=== PATIENT | female | born 1960 | race Caucasian/White ===

== ENCOUNTER → 2018-05-02 11:53 | Outpatient (CLI) | payer OTHER, SELFPAY ==
--- NOTE | 2018-05-02 12:07 | RAD_ITS ---
STUDY: X-RAY - LUMBAR SPINE REASON FOR EXAM: Female, 58 years old. TECHNIQUE: 10 view(s) of the lumbar spine were obtained. COMPARISON: None FINDINGS: There are mild degenerative changes involving the lower thoracic spine. The lumbosacral however shows normal alignment and curvature with no acute fractures or dislocations. The disc spaces look fairly well-contained except for the presence of marginal osteophytes at the L2-3 level. The facet joints are normal. Posterior elements are within normal limits. . RAD/L/S Spine Min 4 Views IMPRESSION: Degenerative changes involving the lower thoracic spine. Small marginal osteophytes at the L2-3 level. No acute fractures. Electronically Signed: Aman Naidu MD at 4:52 EST Tel , Service support ,
== END ==
PROVIDERS: Family Provider Family Medicine; PCP Family Medicine; Referring Provider Family Medicine; Visit Provider Family Medicine
DX: M54.5 Low back pain (principal); G89.29 Other chronic pain
CPT/HCPCS: 72110

== ENCOUNTER → 2019-06-19 10:02 | Outpatient (CLI) | payer OTHER, SELFPAY ==
[2015-05-12 11:20] VITALS: BMI 34.6
--- NOTE | 2019-06-19 10:06 | RAD_ITS ---
STUDY: X-RAY - LUMBAR SPINE REASON FOR EXAM: Female, 59 years old. Chronic low back pain. TECHNIQUE: 5 view(s) of the lumbar spine were obtained. COMPARISON: None FINDINGS: Normal lumbar lordosis. There is no substantial scoliosis. There is a normal alignment of the vertebrae. Mild spondylosis L2-L3 otherwise normal endplates and vertebral bodies. No significantly narrowed disc spaces. No compression fractures. The soft tissue structures are unremarkable. RAD/L/S Spine Min 4 Views IMPRESSION: Minimal degenerative changes. No acute abnormalities. Electronically Signed: Andrea Mejia MD at 0:01 EST , Service support ,
== END ==
PROVIDERS: Family Provider Family Medicine; PCP Family Medicine; Referring Provider Family Medicine; Visit Provider Family Medicine
DX: M54.5 Low back pain (principal)
CPT/HCPCS: 72110

== ENCOUNTER 2019-07-13 14:00 | Outpatient (RCR) | payer OTHER, SELFPAY ==
--- NOTE | 2019-07-01 09:50 | HP.PTEVAL_ITS ---
Patient's Visit Information RODRICK RIVERA is a 59 year old F referred to Physical Therapy by Michel Myers MD with a diagnosis of CHRONIC LOW BACK PAIN. Date of Evaluation: 06/30/19 Physical Therapist: Gabby Contreras PT, Cert MDT - Visit Plan Frequency: 2-3x /Week Duration: 4-6 Weeks Plan: AQUATIC THERAPY FOR PAIN RELIEF, POSTURE CORRECTION/STRENGTHENING, INSTRUCTION IN APPROPRIATE BODY MECHANICS AND ACTIVITY MODIFICATIONS. DLS STARTING WITH A NEUTRAL SPINE PROGRESSING ROM TOLERATED. BALTAZAR LE ROM, STRETCHING AND STRENGTHENING. HEP INSTRUCTION. 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 CURRENTLY OFF WORK SINCE JUN 25 2019 AND TENTATIVELY OFF WORK UNTIL JUL 17 2019. Disability: NO. Present symptoms: LOW BACK PAIN. RIGHT BUTTOCK PAIN, RIGHT THIGH PAIN, RIGHT LATERAL LOWER LEG NUMBNESS INTO FOOT AND TOES. PATIENT REPORTS HER RIGHT ANKLE FEELS LIKE IT IS SPRAINED. THE RIGHT LE NUMBNESS IS CONSTANT. Present since: CHRONIC LOW BACK PAIN. BRONCHITIS SEVERAL MONTHS AGO WITH FREQUENT COUGHING THROWING BACK OUT AND HASN'T BEEN ABLE TO GET BACK TO BASELINE. LEG CRAMPING WITH WALKING. RECENTLY HAS STARTED TO TRIP. Pain Scale: WORST 8/10, LEAST 0/10. Currently: 5/10. Commenced as a result of: THIS FLARE UP - COUGHING. Symptoms at onset: LOW BACK. Worse: SITTING, LYING DOWN, WALKING, RISING FROM SITTING, COUGHING, SNEEZING, CLEARING THROAT, BENDING BACK. GETTING UP IN THE MORNINGS. Better: SOMETIMES WALKING SHORT DISTANCES, PAIN MEDS. NUMBNESS GETS SLIGHTLY BETTER IN LYING BUT ONCE UP IT IS WORSE. Disturbed sleep: YES. Previous history/Previous treatment: MULTIPLE BACK INJURIES OVER THE YEARS. SOME OF THEM WORK INJURIES. 2011 MICRO DISCECTOMY L2-L5 FOR HERNIATION. H/O OF RAI BEFORE SURGERY. PHYSICAL THERPAY PRIOR TO SX IN 2011 BUT NONE SINCE. H/O CHIRO BEFORE SURGERY TOO. Coughing/sneezing/straining: POSITIVE. Gait: DISTANCE LIMITED. PROLONGED WALKING CAUSES RIGHT LE CRAMPING. RIGHT LE DOESN'T WANT TO WORK RIGHT. OCCASSIONALLY TRIPS. NO ASSISTIVE DEVICES. Difficulty initiating urinatin: NO. Accidents: NO. Unexplained weight loss: NO. Imaging: LUMBAR X- RAYS JUN 19 2019 - MILD DEGENERATIVE CHANGES. 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 OTHER: ORTHO BEATRIZ'T PENDING WITH DR. YUKO WALL JUL 14 2019. TRIED STEROID X 5 DAYS WITHOUT MUCH BENEFIT REPORTED. - Objective Sitting/Standing Posture: POOR. Lordosis: REDUCED. Lateral shift: NO. Relevant shift: N/A. Active Correction of posture: BETTER. Other Observations: DIFFICULTY RISING FROM SITTING AND INITIATING GAIT. LIMPING ON RIGHT LE. DECREASED CADANCE AND ANTALGIC. Motor deficit: LLE 5/5 WITH MMT EXCEPT HIP 4/5. RIGHT LE: HIP 4-/5, KNEE EXT 4/5, KNEE FLEX 4/5, ANKLE 4/5. Sensory deficit: DECREASED RIGHT LAT LEG, FOOT AND TOES. ROM deficit: TIGHT RIGHT HIP FLEXORS, HS'S AND GASTROC SOLEUS COMPLEX. Reflexes: 1/2 RIGHT LE, 2/2 LLE. Dural Signs: POSITIVE RIGHT LE. Lumbar mvmt loss: flex - VITA. ext - VITA. R SG - MOD. L SG - VITA. Core strength: POOR. Palpation: NO ACUTE LUMBOSACRAL TENDERNESS. INCREASED MUSCLE TONE BALTAZAR PARASPINALS. TREATMENT: NEURO RE-ED - INSTRUCTION IN PROPER POSTURE CONTROL AND APPROPRIATE ACTIVITY MODIFICATIONS. - Goals Goal 1:: DECREASE C/O LOW BACK AND RIGHT LE SX'S Goal Time Frame: 4-6 Weeks Goal 2:: IMPROVE PERSONAL CARE, WALKING, SITTING, STANDING, SLEEP, SOCIAL LIFE, TRAVEL, WORK AND HOMEMAKING FUNCTION Goal Time Frame: 4-6 Weeks Goal 3:: INSTRUCT IN PROPHYLAXIS Goal Time Frame: 4-6 Weeks - Rehabilitation Potential Rehabilitation Potential: Fair - Anticipated Interventions Patient/Client Instruction: Educate patient on: Condition, Plan of Care, Risk Factors, Benefits of Fitness Program For the Purpose of:: To improve self management Therapeutic Exercise to Include: Strength training, Endurance training, Balance training, Body mechanics, Postural training, Flexibilty training, Neuromotor development, In an aquatic setting, Active ROM, Dynamic Lumbar Stabilization For the Purpose of:: To decrease pain, To increase ROM, To improve muscle performance and motor function, To increase tolerance to activity/condition/position, To improve ability of physical actions for home/community/work/leisure, To improve gait and locomotor functions Thank you for the opportunity to evaluate your patient. For Medicare and Medicare HMO plans, please review the plan of care and approve it. It will need to be FAXED BACK to us at [phone] for Medicare purposes. For Medicare only, by signing this I certify the plan of care. Please let me know if there are questions or concerns regarding this plan of care. Physician Signature: Date:
--- NOTE | 2019-07-17 12:09 | HP.PT.NRP ---
HP - Discharge Summary (1) - Patient Information RODRICK RIVERA was seen in my office for initial evaluation on 06/30/19. The following Plan of Care was established for this patient: Initial Frequency: 2-3x /Week Initial Duration: 4-6 Weeks - Anticipated Interventions Patient/Client Instruction: Educate patient on: Condition, Plan of Care, Risk Factors, Benefits of Fitness Program For the Purpose of:: To improve self management Therapeutic Exercise to Include: Strength training, Endurance training, Balance training, Body mechanics, Postural training, Flexibilty training, Neuromotor development, In an aquatic setting, Active ROM, Dynamic Lumbar Stabilization For the Purpose of:: To decrease pain, To increase ROM, To improve muscle performance and motor function, To increase tolerance to activity/condition/position, To improve ability of physical actions for home/community/work/leisure, To improve gait and locomotor functions This patient was last seen in our office . Pertinent comments regarding their Physical therapy will appear below: This patient has not returned to Physical Therapy and is appropriate to return to MD for further follow-up as needed. I received a message stating patient cancelled all remaining micaela'ts at the direction of her physician. At this point I will be discontinuing this patient from physical therapy. I would be happy to see this patient again in the future if found appropriate by the physician. Thank you! Gabby Contreras, PT, Cert MDT
== END 2019-07-13 19:00 | disposition home or self-care (01) ==
LOC: PT 14:00
PROVIDERS: Family Provider Family Medicine; PCP Family Medicine; Referring Provider Family Medicine; Visit Provider Family Medicine
DX: M54.5 Low back pain (principal)
CPT/HCPCS: 97112; 97113; 97162

== ENCOUNTER → 2020-01-15 08:32 | Outpatient (CLI) | payer OTHER, SELFPAY ==
[2015-05-12 11:20] VITALS: BMI 34.6
[2020-01-15 10:08] LABS: Anion Gap 4 (5-15); BUN 17 mg/dL (7-18); BUN/Creat Ratio 18.3 RATIO (10-20); Calcium,Total 9.3 mg/dL (8.5-10.1); Chloride 105 mmol/L (98-107); Cholesterol 166 mg/dL (200); Creatinine, Serum 0.93 mg/dL (0.55-1.02); EST Glomerular Filtration Rate 65 mL/min (>60); Est Glom Filt Rate - Afr Amer 79 mL/min (>60); Glucose 100 mg/dL (74-106); High Density Lipoprotein 45 mg/dL; Potassium 3.7 mmol/L (3.5-5.1); Sodium Level 139 mmol/L (136-145); Triglycerides 265 mg/dL; Very Low Density Lipoprotein 53 mg/dL (5-40)
[2020-01-15 10:14] LABS: Vitamin D,25 Hydroxy 35.8 ng/mL
== END ==
PROVIDERS: PCP Family Medicine; Referring Provider Family Medicine; Visit Provider Family Medicine
DX: E78.5 Hyperlipidemia, unspecified (principal); E55.9 Vitamin D deficiency, unspecified
CPT/HCPCS: 36415; 80048; 80061; 82306

== ENCOUNTER → 2020-10-07 09:56 | Outpatient (CLI) | payer OTHER, SELFPAY ==
--- NOTE | 2020-10-07 10:04 | BI_ITS ---
MAMMOGRAPHY - BILATERAL SCREENING REASON FOR EXAM: Female, 60 years old. Routine annual screening examination. PERTINENT HISTORY: Non-contributory. Remote right excisional breast biopsy. History of prior left lumpectomy for abscess treatment. TECHNIQUE: Digital bilateral breast arnel (3D mammographic acquisition) in the CC and MLO projections. 2-D mediolateral oblique (MLO) and craniocaudad (CC) views of both breasts were obtained. CAD: Full Field Digital Mammography with Computer Added Detection was performed. COMPARISON: Comparison is made with prior outside examination dated 09/24/2014. FINDINGS: Breast Composition: The breasts are heterogeneously dense, which may obscure small masses. There are no dominant masses or suspicious calcifications. Stable benign-appearing bilateral axillary lymph nodes. No other significant abnormalities are identified. There has been no significant change since the prior study. BI/SCRN MAMM (CAD)W/ARNEL BILAT IMPRESSION: Stable bilateral screening mammogram. Yearly follow-up mammogram recommended. (A) ASSESSMENT CATEGORY: BIRADS Category 2: Benign. A letter regarding these results will be sent to the patient by the facility within 30 days. Approximately 10% of breast cancers are not detected by mammography. A normal mammogram should not delay biopsy of a clinically suspicious abnormality. [id number] Electronically Signed: Octavio Worley MD at 13:27 EDT , Service support ,
== END ==
PROVIDERS: PCP Family Medicine; Referring Provider Family Medicine; Visit Provider Family Medicine
DX: Z12.31 Encounter for screening mammogram for malignant neoplasm of breast (principal)
CPT/HCPCS: 77063; 77067

== ENCOUNTER → 2021-03-10 14:13 | Outpatient (CLI) | payer OTHER, SELFPAY ==
[2021-03-10 17:41] LABS: CRP 3.52 mg/L (0.0-3.0)
[2021-03-13 17:07] LABS: Endomysial Antibody IgA Negative (Negative)
[2021-03-13 18:09] LABS: Immunoglobulin A 25 mg/dL (87-352); t-Transglutaminase IgA <2 U/mL (0-3)
== END ==
PROVIDERS: PCP Family Medicine; Referring Provider Internal Medicine Gastroenterology; Visit Provider Internal Medicine Gastroenterology
DX: R19.7 Diarrhea, unspecified (principal)
CPT/HCPCS: 36415; 82784; 83516; 86140; 86255

== ENCOUNTER → 2021-03-23 13:53 | Outpatient (CLI) | payer OTHER, SELFPAY | PROVIDERS: PCP Family Medicine; Referring Provider Internal Medicine Gastroenterology; Visit Provider Internal Medicine Gastroenterology | DX: E55.9 Vitamin D deficiency, unspecified (principal); Z83.79 Family history of other diseases of the digestive system | CPT/HCPCS: 36415; 83516 ==

== ENCOUNTER → 2021-03-27 08:52 | Outpatient (CLI) | payer OTHER, SELFPAY | PROVIDERS: PCP Family Medicine; Referring Provider Registered Nurse; Visit Provider Registered Nurse | DX: J98.8 Other specified respiratory disorders (principal) | CPT/HCPCS: 87633; 87635; U0005; U0003 ==

== ENCOUNTER 2021-07-04 16:51 | Outpatient (CLI) | payer OTHER, SELFPAY | END 2021-07-04 23:59 | disposition short-term general hospital (02) | PROVIDERS: PCP Family Medicine; Referring Provider Family Medicine; Visit Provider Family Medicine | DX: Z20.822 Contact with and (suspected) exposure to COVID-19 (principal) | CPT/HCPCS: 87635; U0003; U0005 ==

== ENCOUNTER 2021-09-06 16:36 | Outpatient (CLI) | payer OTHER, SELFPAY ==
[2021-09-06 17:51] LABS: Absolute Lymphocyte Count 1.75 X10^3/uL (0.83-4.51); Basophil# 0.04 X10^3/uL; Basophil% 0.9 % (0-1); Eosinophils% 2.3 % (0-5); Hematocrit 42.9 % (37-47); Lymphocyte # 1.75 X10^3/ul (0.83-4.51); Lymphocyte % 40.4 % (19-41); Mean Corp Hgb Conc 32.6 g/dL (32-36); Mean Corpuscular Hgb 29.6 pg (27.0-32.0); Mean Corpuscular Volume 90.7 fL (81-99); Mean Platelet Vol. 9.2 fl (6.2-12.0); Monocyte# 0.42 X10^3/uL; Monocyte% 9.7 % (0-10); NRBC Flagged by Analyzer 0 % (0-5); Neutrophil # 2.01 X10^3/uL (2.7-7.7); Neutrophil % 46.5 % (47-70); Platelet Count 315 K/mm3 (150-450); RBC Distribution Width CV 12.9 % (11.6-14.6); RBC Distribution Width SD 43.4 fl (35.1-43.9); Red Blood Count 4.73 M/mm3 (4.2-5.4); White Blood Count 4.3 K/mm3 (4.4-11.0)
[2021-09-06 18:48] LABS: Anion Gap 7 (5-15); BUN 22 mg/dL (7-18); BUN/Creat Ratio 30.1 RATIO (10-20); Calcium,Total 9.7 mg/dL (8.5-10.1); Chloride 103 mmol/L (98-107); Creatinine, Serum 0.73 mg/dL (0.55-1.02); EST Glomerular Filtration Rate 86 mL/min (>60); Est Glom Filt Rate - Afr Amer 104 mL/min (>60); Glucose 89 mg/dL (74-106); Potassium 3.6 mmol/L (3.5-5.1); Sodium Level 140 mmol/L (136-145)
== END 2021-09-06 23:59 | disposition home or self-care (01) ==
LOC: MFPLAB 16:39
PROVIDERS: PCP Family Medicine; Referring Provider Family Medicine; Visit Provider Family Medicine
DX: R25.1 Tremor, unspecified (principal)
CPT/HCPCS: 36415; 80048; 85025

== ENCOUNTER → 2021-12-27 | Outpatient (CLI) | payer OTHER, SELFPAY ==
[2021-12-27 12:53] LABS: Vitamin D,25 Hydroxy 30.8 ng/mL
[2021-12-27 12:57] LABS: Anion Gap 7 (5-15); BUN 20 mg/dL (7-18); BUN/Creat Ratio 24.3 RATIO (10-20); Calcium,Total 9.6 mg/dL (8.5-10.1); Chloride 103 mmol/L (98-107); Cholesterol 215 mg/dL (200); Creatinine, Serum 0.82 mg/dL (0.55-1.02); EST Glomerular Filtration Rate 75 mL/min (>60); Est Glom Filt Rate - Afr Amer 91 mL/min (>60); Glucose 108 mg/dL (74-106); High Density Lipoprotein 43 mg/dL; Potassium 3.5 mmol/L (3.5-5.1); Sodium Level 138 mmol/L (136-145); Triglycerides 286 mg/dL; Very Low Density Lipoprotein 57 mg/dL (5-40)
== END | disposition home or self-care (01) ==
LOC: MFPLAB 10:22
PROVIDERS: PCP Family Medicine; Referring Provider Family Medicine; Visit Provider Family Medicine
DX: Z00.01 Encounter for general adult medical examination with abnormal findings (principal)
CPT/HCPCS: 36415; 80048; 80061; 82306

== ENCOUNTER → 2022-03-15 | Outpatient (CLI) | payer OTHER, SELFPAY ==
--- NOTE | 2022-03-15 15:04 | RAD_ITS ---
STUDY: X-RAY CHEST REASON FOR EXAM: Female, 61 years old. COUGH TECHNIQUE: PA and lateral views of the chest. COMPARISON: 11/13/2013 FINDINGS: The lungs are clear and expanded. There is no demonstrated pleural abnormality. Normal size heart. Normal mediastinum and emilia. Normal visualized pulmonary arteries. There is atherosclerotic tortuosity of the aortic arch and descending thoracic aorta. There is no demonstrated abnormality of the visualized soft tissue structures of the upper abdomen. RAD/Chest PA and Lateral IMPRESSION: No acute abnormal cardiopulmonary finding. Electronically Signed: Michel Rizo MD at 3:49 EDT ,
== END | disposition home or self-care (01) ==
LOC: MTRAD 15:03
PROVIDERS: PCP Family Medicine; Referring Provider Family Medicine; Visit Provider Family Medicine
DX: R05.9 Cough, unspecified (principal)
CPT/HCPCS: 71046

== ENCOUNTER → 2022-07-19 | Outpatient (CLI) | payer OTHER, SELFPAY ==
--- NOTE | 2022-07-19 15:15 | BI_ITS ---
MAMMOGRAPHY - BILATERAL SCREENING REASON FOR EXAM: Female, 62 years old. Routine annual screening examination. PERTINENT HISTORY: Non-contributory. Remote bilateral excisional breast biopsies. TECHNIQUE: Digital bilateral breast arnel (3D mammographic acquisition) in the CC and MLO projections. 2-D mediolateral oblique (MLO) and craniocaudad (CC) views of both breasts were obtained. CAD: Full Field Digital Mammography with Computer Added Detection was performed. COMPARISON: Comparison is made with prior study dated 10/07/2020 and 09/29/2012. FINDINGS: Breast Composition: The breasts are heterogeneously dense, which may obscure small masses. There are no dominant masses or suspicious calcifications. Stable small benign-appearing bilateral axillary lymph nodes. No other significant abnormalities are identified. There has been no significant change since the prior study. BI/SCRN MAMM (CAD)W/ARNEL BILAT IMPRESSION: Stable bilateral screening mammogram. Yearly follow-up mammogram recommended. (A) ASSESSMENT CATEGORY: BIRADS Category 2: Benign. A letter regarding these results will be sent to the patient by the facility within 30 days. Approximately 10% of breast cancers are not detected by mammography. A normal mammogram should not delay biopsy of a clinically suspicious abnormality. [id number] Electronically Signed: Octavio Worley MD at 8:12 EST ,
--- NOTE | 2022-07-19 15:25 | BD_ITS ---
STUDY: DUAL ENERGY X-RAY ABSORPTIOMETRY / DXA REASON FOR EXAM: Female, 62 years old. [id number] TECHNIQUE: Bone Mineral Density (BMD) measurements of lumbar spine and bilateral hips were obtained. COMPARISON: None. FINDINGS: Lumbar Spine (L1-L4): g/cm2 (0.965) / T-score (-0.7) / Z-score (0.8) Findings are suggestive of normal bone density with a low fracture risk. Left Femur Total: g/cm2 (0.904) / T-score (-0.3) / Z-score (0.8) Left Femoral Neck: g/cm2 (0.648) / T-score (-1.8) / Z-score (-0.4) Right Femur Total: g/cm2 (0.942) / T-score (0.0) / Z-score (1.1) Right Femoral Neck: g/cm2 (0.758) / T-score (-0.8) / Z-score (0.6) BD/Dexa Bone Density Study IMPRESSION: The patient is considered osteopenic as outlined below according to World Jeff Organization (WHO) criteria with a moderate fracture risk. Reference Information: The T-score is the number of standard deviations above or below the standard which is normal for young adults at their peak bone mineral density. The World Health Organization (WHO) interprets the T-scores as follows: Above -1 Normal bone density Between -1 and -2.5 Osteopenia Equal to / or below -2.5 Osteoporosis As a practical clinical guideline, osteopenia may be graded as follows: Mild -1 through -1.5 Moderate -1.6 through -2.0 Severe -2.1 through -2.4 The Z-score is the number of standard deviations above or below age-matched controls. A Z-score of less than -1.5 would be considered abnormal. References: 1. NIH Osteoporosis and Related Bone Diseases www osteo.org 2. International Society for Clinical Densitometry www iscd.org 3. National Osteoporosis Foundation www nof.org Electronically Signed: Octavio Worley MD at 12:40 EST ,
== END | disposition home or self-care (01) ==
LOC: OPBD 15:13
PROVIDERS: PCP Family Medicine; Visit Provider Family Medicine
DX: Z78.0 Asymptomatic menopausal state (principal); Z12.31 Encounter for screening mammogram for malignant neoplasm of breast
CPT/HCPCS: 77063; 77067; 77080

== ENCOUNTER → 2023-03-14 | Outpatient (CLI) | payer OTHER, SELFPAY ==
--- NOTE | 2023-03-14 09:19 | US_ITS ---
STUDY: ULTRASOUND BREAST - LEFT REASON FOR EXAM: Female, 62 years old. Left breast pain and tenderness. Redness of the overlying skin. TECHNIQUE: Axial and longitudinal images of the LEFT breast were performed with a high resolution ultrasound transducer. # OF IMAGES: 25 COMPARISON: Comparison is made with prior mammogram done earlier in the day. FINDINGS: LEFT Breast: The upper medial aspect of the breast was examined with ultrasound. No sonographic abnormality is seen. US/Breast Limited Unilateral IMPRESSION: No sonographic abnormality is seen. ASSESSMENT CATEGORY: BIRADS Category 1: Negative. A letter regarding these results will be sent to the patient by the facility within 30 days. Electronically Signed: Octavio Worley MD at 10:56 EDT ,
--- NOTE | 2023-03-14 09:19 | BI_ITS ---
MAMMOGRAPHY - UNILATERAL DIAGNOSTIC: LEFT BREAST REASON FOR EXAM: Female, 62 years old. One-week history of redness of the skin overlying the medial aspect of the left breast. Patient has history of prior abscess in the breast with drainage. Remote right excisional breast biopsy. PERTINENT HISTORY: Non-contributory. TECHNIQUE: Digital unilateral breast alisha (3D mammographic acquisition) in the CC and MLO projections. 2-D mediolateral oblique (MLO) and craniocaudad (CC) views of both breasts were obtained. CAD: Full Field Digital Mammography with Computer Added Detection was performed. COMPARISON: Comparison is made with prior study July 19, 2022 and October 07, 2020. FINDINGS: Breast Composition: The breasts are heterogeneously dense, which may obscure small masses. There are no dominant masses or suspicious calcifications. Stable small benign appearing bilateral axillary lymph nodes. No other significant abnormalities are identified. There has been no significant change since the prior study. BI/DIAG MAMM W/CAD, UNILAT IMPRESSION: Stable unilateral diagnostic mammogram. One year follow-up mammogram recommended. (A) ASSESSMENT CATEGORY: BIRADS Category 2: Benign. A letter regarding these results will be sent to the patient by the facility within 30 days. Approximately 10% of breast cancers are not detected by mammography. A normal mammogram should not delay biopsy of a clinically suspicious abnormality. Electronically Signed: Octavio Worley MD at 10:47 EDT ,
== END | disposition home or self-care (01) ==
PROVIDERS: PCP Family Medicine; Referring Provider Family Medicine; Visit Provider Family Medicine
DX: N63.20 Unspecified lump in the left breast, unspecified quadrant (principal)
CPT/HCPCS: 76642; 77061; 77065; G0279

== ENCOUNTER 2023-04-20 12:01 | Emergency (ER) | payer OTHER, SELFPAY ==
[2023-04-20 12:02] VITALS: BP 135/80; PULSE 54; RESP 16; TEMP 35.7; O2SAT 98; BMI 34.4
--- NOTE | 2023-04-20 12:15 | EKG12_ITS ---
Test Reason : CHEST PAIN Blood Pressure : / mmHG Vent. Rate : 054 BPM Atrial Rate : 054 BPM P-R Int : 144 ms QRS Dur : 094 ms QT Int : 450 ms P-R-T Axes : 045 -22 021 degrees QTc Int : [address] & T wave abnormality, consider anterior ischemia Abnormal ECG Confirmed by JOSE DANIEL ANGUIANO, MATT ([id number]), industrial editor LIDIA BACON ([id number]) on 04/29/2023 6:58:58 AM Referred By: VIOLETA Confirmed By:KWAME SKY MD
--- NOTE | 2023-04-20 12:16 | ED.VIS.CHEST ---
HPI History of Present Illness Chief Complaint: Chest Pain Detail of Chief Complaint: Chest pain Informant: patient Narrative Narrative: Patient presents the emergency department complaint chest pain that started around 9 AM this morning. She describes a sharp retrosternal pain that at times will radiate to her right shoulder blade. Patient states that initially she thought it was GI related because she will have intermittent sharp pains in her chest that she attributes to her GERD. Patient then was standing in line at a store when she started feeling more pressure meds when she became concerned. She presents for evaluation. She denies nausea or vomiting. She has been signing more and feels like she needs to take a deep breath but not necessarily short of breath. She denies exertional dyspnea or change in her activities of daily living. No family history of heart disease. Patient has history of mitral valve prolapse. She does not smoke. She denies recent travel or surgery. She denies history of PE or DVT. PFSH PFSH Home Medications budesonide-formoterol HFA 80 mcg-4.5 mcg/actuation aerosol inhaler (Symbicort) 1 inh inhalation ONCE 03/11/22 [History Last Taken Unknown] hydrochlorothiazide 12.5 mg capsule 12.5 mg PO DAILY 03/11/22 [History Last Taken Unknown] immune glob G 1 gram/5 mL(20 %)-prol-IgA 0-50 mcg/mL subcutaneous soln (Hizentra) subcut 03/11/22 [History Last Taken Unknown] omeprazole 20 mg capsule,delayed release 20 mg PO DAILY 03/11/22 [History Last Taken Unknown] dexamethasone 6 mg tablet 6 mg PO DAILY #5 tabs 05/19/22 [Rx Last Taken Unknown] nirmatrelvir 300 mg (150 mg x2)-ritonavir 100 mg tablet,dose pack (Paxlovid) See Rx Instructions PO .COMPLEX #30 tabs 05/19/22 [Rx Last Taken Unknown] Allergy/AdvReac Type Severity Reaction Status Date / Time erythromycin base Allergy Mild Nausea Verified 04/20/23 12:01 Surgical History H/O: hysterectomy History of appendectomy Hx of cholecystectomy Social History Smoking Status: Never smoker ROS ROS ED Review of Systems ROS Unobtainable: other Constitutional Constitutional ED: Reports lethargy; Denies chills, fever(s), sweats or weight loss Eyes Eyes: Denies blurry vision, change in vision or diplopia ENT ENT ED: Denies rhinorrhea or sore throat Cardiovascular Cardiovascular: Reports chest pain; Denies orthopnea or racing heartbeat Respiratory/Chest Respiratory/Chest: Reports dyspnea; Denies cough, dyspnea on exertion, orthopnea or sputum Gastrointestinal Gastrointestinal: Denies abdominal pain, diarrhea, nausea or vomiting Genitourinary Genitourinary ED: Denies dysuria, hematuria or urinary frequency Musculoskeletal Musculoskeletal: Denies arthralgias, back pain, myalgias or neck pain Integumentary Denies abscess, Abrasions or rash Neurologic Neurologic: Denies headache(s) or weakness Psychiatric Psychiatric: Denies anxiety, depression or suicidal thoughts Endocrine Endocrinology: Denies polydipsia, polyphagia or polyuria Hematologic/Lymphatic Hematologic/Lymphatic: Denies easy bleeding, easy bruising or lymphadenopathy Allergic/Immunologic Allergic/Immunologic ED: Denies mouth swelling, tongue swelling or urticaria EXAM Physical Exam Const Vital Signs: 04/20/23 12:02 04/20/23 12:30 04/20/23 12:30 Temperature 96.2 F L Temperature Source Temporal Pulse Rate 54 L 51 L Respiratory Rate 16 16 Respiratory Effort Short of Breath Blood Pressure 135/80 H 174/108 H Blood Pressure Mean 98 130 Pulse Ox 98 98 Oxygen Delivery Method Room Air Room Air 04/20/23 12:33 04/20/23 14:01 Temperature Temperature Source Pulse Rate 51 L Respiratory Rate 13 Respiratory Effort Blood Pressure 122/68 H Blood Pressure Mean 86 Pulse Ox 96 95 Oxygen Delivery Method Room Air Room Air Positive well nourished and well developed General Appearance ED: well developed and NAD HEENT Reports TM's clear and moist mucous membranes normocephalic and atraumatic; Negative for trauma or tenderness Tympanic Membrane ED: Yes TM's clear Eyes PERRL and EOMs intact bilaterally General Eye ED: Negative for pale conjunctiva or scleral icterus Neck no lymphadenopathy, supple and no JVD General: Negative for tenderness Chest Wall inspection of chest normal and palpation of chest normal Chest: Negative for tenderness Resp normal respiratory effort and clear to auscultation bilaterally Effort and Inspection: Negative for respiratory distress or pain with movement Auscultation: Negative for rhonchi, wheezes or diminished lung sounds Cardio regular rate, regular rhythm, S1 normal heart sound, S2 normal heart sound and no murmurs Peripheral Pulses: pulses 2+ throughout GI normal to inspection, nondistended, normoactive bowel sounds, soft to palpation, non-tender, non-distended and no masses Back/Spine no CVA tenderness and no thoracic nor lumbar tenderness Extremity normal to inspection General Extremety ED: Negative for edema General Extremity: Negative for edema Neuro oriented x3, CN's II-XII intact bilaterally, no sensory deficits noted and gait normal Sensorium / Orientation: awake, alert, oriented to person, oriented to place and oriented to time Motor Exam: strength 5/5 throughout and strength abnormal Psych mental status grossly normal Skin no rashes or lesions noted and no wounds Heart Score History: Slightly/Non-Suspicious ECG: Nonspecific Repolarization Age: >45 - <65 years Risk Factors: 1 or 2 Risk Factors Troponin: </= Normal Limit Score: 3 MDM MDM MDM Narrative Medical decision making narrative: Patient presents with atypical type chest pain started today. In the differential would be PE versus acute coronary syndrome versus musculoskeletal versus GI etiology. IV established on arrival showed a sinus rhythm with a rate of [address] changes. When compared with prior EKG changes are new however last EKG was from 2010. Patient CBC with differential showed a white count 5.8 with hemoglobin of 13.8 and platelet count of 305. Chemistries unremarkable. Initial troponin was normal at 28 and delta troponin was normal at 29. Chest x-ray unremarkable. Patient had a heart score of 3. Medical shared decision making performed. We did offer to admit patient and have a stress test however they do not do them tomorrow will only be available on Saturday. Patient did not want to be admitted and wait until Saturday the and would like to try to go home and follow-up with her physician as an outpatient. She continues to have intermittent sharp stabbing pains in the center of her chest. Clinically I feel she is low risk. She understands risk of heart attack or disability should she have an acute coronary syndrome. Patient would like to go home and she will return if her symptoms persist or worsen. Lab Data Attestation: I reviewed the patient's lab results. Labs: Laboratory Results - last 24 hr 04/20/23 04/20/23 12:20 14:20 WBC 5.8 RBC 4.64 Hgb 13.8 Hct 41.9 MCV 90.3 MCH 29.7 MCHC 32.9 RDW Std Deviation 42.5 RDW Coeff of Guerda 13.0 Plt Count 305 MPV 9.0 Immature Gran % (Auto) 0.500 Neut % (Auto) 47.7 Lymph % (Auto) 37.6 Mineral % (Auto) 9.7 Eos % (Auto) 3.5 Baso % (Auto) 1.0 Absolute Neuts (auto) 2.8 Absolute Lymphs (auto) 2.17 Nucleated RBC % 0 D-Dimer Quant (PE/DVT) 0.50 H Sodium 140 Potassium 3.5 Chloride 104 Carbon Dioxide 28.0 Anion Gap 8 BUN 22 H Creatinine 0.84 Estim Creat Clear Calc 66.66 Est GFR (MDRD) Af Amer 88 Est GFR (MDRD) Non-Af 73 BUN/Creatinine Ratio 26.1 H Glucose 115 H Calcium 9.5 Troponin I High Sens 28 29 Radiography Diagnostic Testing: Clinical Impression(s) from Imaging Studies Chest X-Ray 04/20/23 12:41 IMPRESSION: No radiographic evidence of acute cardiopulmonary disease. Electronically Signed: Aubree Garcia MD at 13:10 EDT , EKG Initial EKG: Attestation: I personally reviewed and interpreted this EKG as follows: Comments: Sinus bradycardia with a rate of beats per minute with nonspecific ST changes noted anterior laterally. Discharge Plan Triage Chief Complaint: Chest Pain ED Provider: Cassandra Fernandez Dx/Rx/DC Orders Clinical Impression: Chest pain Instructions: ED Chest Pain, Uncertain Cause Prescriptions: No Action hydrochlorothiazide 12.5 mg capsule 12.5 mg PO DAILY budesonide-formoterol [Symbicort] 80-4.5 mcg/actuation HFA aerosol inhaler 1 inh inhalation ONCE Hizentra 1 gram/5 mL (20 %) solution subcut omeprazole 20 mg capsule,delayed release(DR/EC) 20 mg PO DAILY Paxlovid 300 mg (150 mg x 2)-100 mg tablets,dose pack See Rx Instructions PO .COMPLEX Qty: 30 0RF Rx Instructions: take TWO 150 mg tablets of nirmatrelvir with ONE 100 mg tablet of ritonavir twice daily for 5 days PO dexamethasone 6 mg tablet 6 mg PO DAILY Qty: 5 0RF Primary Care Provider: Michel Myers Referrals: Michel Myers MD [Primary Care Provider] - As soon as possible Disposition Disposition: Home, Self Care
[2023-04-20] MEDS: 0.9% Normal Saline (1000mL) 1,000 ML 150 ML IV (12:26)
[2023-04-20] MEDS: Aspirin 81 MG TAB.CHEW 162 MG PO (12:27)
[2023-04-20 12:30] VITALS: BP 174/108; PULSE 51; RESP 16; O2SAT 98
[2023-04-20 12:33] VITALS: O2SAT 96
[2023-04-20 12:39] LABS: Absolute Lymphocyte Count 2.17 X10^3/uL (0.83-4.51); Absolute Neutrophil Count 2.8 X10^3/uL (2.0-7.7); Basophil# 0.06 X10^3/uL; Eosinophils% 3.5 % (0-5); Hematocrit 41.9 % (37-47); Hemoglobin 13.8 g/dL (12.0-15.0); Lymphocyte # 2.17 X10^3/ul (0.83-4.51); Lymphocyte % 37.6 % (19-41); Mean Corp Hgb Conc 32.9 g/dL (32-36); Mean Corpuscular Hgb 29.7 pg (27.0-32.0); Mean Corpuscular Volume 90.3 fL (81-99); Monocyte# 0.56 X10^3/uL; Monocyte% 9.7 % (0-10); NRBC Flagged by Analyzer 0 % (0-5); Neutrophil # 2.75 X10^3/uL (2.7-7.7); Neutrophil % 47.7 % (47-70); Platelet Count 305 K/mm3 (150-450); RBC Distribution Width SD 42.5 fl (35.1-43.9); Red Blood Count 4.64 M/mm3 (4.2-5.4); White Blood Count 5.8 K/mm3 (4.4-11.0)
--- NOTE | 2023-04-20 12:41 | RAD_ITS ---
INDICATION: chest pain EXAMINATION/TECHNIQUE: X-RAY - XR Chest 1 View COMPARISON: March 15, 2022 FINDINGS: LINES/DEVICES: None. LUNGS: No consolidation, edema or effusion. No pneumothorax. MEDIASTINUM AND CARDIOVASCULAR STRUCTURES: Cardiac silhouette not enlarged. Central airways and mediastinal contour are unremarkable. BONES AND SOFT TISSUES: Unremarkable. RAD/Chest 1 View (Portable) IMPRESSION: No radiographic evidence of acute cardiopulmonary disease. Electronically Signed: Aubree Garcia MD at 13:10 EDT ,
[2023-04-20 12:57] LABS: Anion Gap 8 (5-15); BUN 22 mg/dL (7-18); BUN/Creat Ratio 26.1 RATIO (10-20); Calcium,Total 9.5 mg/dL (8.5-10.1); Chloride 104 mmol/L (98-107); Creatinine, Serum 0.84 mg/dL (0.55-1.02); EST Glomerular Filtration Rate 73 mL/min (>60); Est Glom Filt Rate - Afr Amer 88 mL/min (>60); Estimated Creatinine Clearance 66.66 ml/min; Glucose 115 mg/dL (74-106); Potassium 3.5 mmol/L (3.5-5.1); Sodium Level 140 mmol/L (136-145); Troponin-I HS (w/2H Reflex) 28 pg/mL (3.0-54.0)
[2023-04-20 14:01] VITALS: BP 122/68; PULSE 51; RESP 13; O2SAT 95
[2023-04-20 14:36] LABS: Reflex Troponin-HS? (from REC) Y
[2023-04-20 15:00] VITALS: BP 125/82; PULSE 53; RESP 12; O2SAT 95
[2023-04-20 15:18] LABS: Troponin-I HS 29 pg/mL (3.0-54.0)
[2023-04-20 15:52] VITALS: BP 125/82; PULSE 53; RESP 12; O2SAT 95
== END 2023-04-20 15:55 | disposition home or self-care (01) ==
PROVIDERS: Emergency Provider Emergency Medicine; PCP Family Medicine; Visit Provider Emergency Medicine
DX: R07.9 Chest pain, unspecified (principal)
CPT/HCPCS: 71045; 80048; 84484; 85025; 85379; 93005; 99284; J7030; A4216

== ENCOUNTER → 2023-05-27 | Outpatient (CLI) | payer OTHER, SELFPAY ==
--- NOTE | 2023-05-27 06:48 | ECHOD_ITS ---
Reason For Study: CP, MVP Procedure This was a 2D Doppler, Color Flow transthoracic echocardiogram. Exam performed in department. Left Ventricle Normal LV size. The estimated ejection fraction is 65 %. No evidence for diastolic dysfunction. No regional wall motion abnormalities noted. Right Ventricle Normal RV size. Normal systolic function. Atria Normal left atrium. Normal right atrium. No doppler evidence for ASD. Mitral Valve There is no mitral valve stenosis. No mitral valve insufficiency. Tricuspid Valve There is no tricuspid stenosis. Trivial tricuspid valve insufficiency. Unable to estimate RV systolic pressure due to insufficient tricuspid regurgitant envelope. Aortic Valve Trisinus/trileaflet aortic valve. There is no aortic stenosis. No aortic valve insufficiency. Pulmonic Valve There is no pulmonic valvular stenosis. Trivial pulmonic valve insufficiency. Great Vessels Normal aortic root. Pericardium/Pleural No pericardial effusion. MMode/2D Measurements & Calculations LVIDd: 5.4 cm IVSd: 1.0 cm Ao root diam: 3.5 cm LVIDs: 3.0 cm LVPWd: 1.0 cm RVDd: 2.4 cm FS: 43.8 % LAV(MOD-bp): 39.9 ml LVAd ap4: 18.8 cm2 SV(MOD-sp4): 29.1 ml LAV(MOD-bp) Indexed: 19.3 ml/m2 LVLd ap4: 6.8 cm LAV(MOD-sp2): 40.8 ml EDV(MOD-sp4): 44.0 ml LAV(MOD-sp4): 39.2 ml EDV(sp4-el): 44.1 ml LVAs ap4: 9.6 cm2 LVLs ap4: 5.4 cm ESV(MOD-sp4): 14.9 ml ESV(sp4-el): 14.3 ml EF(MOD-sp4): 66.1 % EF(sp4-el): 67.5 % SV(sp4-el): 29.7 ml LA A4 area: 14.9 cm2 LA dimension(2D): 3.8 cm RA A4 area: 9.6 cm2 TAPSE: 2.4 cm Time Measurements MV dec time: 0.33 sec Doppler Measurements & Calculations MV E max fam: 55.2 cm/sec Lat Peak E' Fam: 6.4 cm/sec Med Peak E' Fam: 5.1 cm/sec MV A max fam: 67.8 cm/sec E/E' lat: 8.6 E/E' med: 10.9 MV E/A: 0.81 Ao V2 max: 127.9 cm/sec LV V1 max: 90.2 cm/sec MV dec slope: 167.8 cm/sec2 Ao max P.5 mmHg LV V1 max P.3 mmHg Ao V2 mean: 91.1 cm/sec Ao mean P.6 mmHg Ao V2 VTI: 26.0 cm PA V2 max: 90.6 cm/sec PI end-d fam: 105.3 cm/sec TR max fam: 225.2 cm/sec TR max P.3 mmHg ECHO/Echo Complete Interpretation Summary The estimated ejection fraction is 65 %. No evidence for diastolic dysfunction. Ordering Physician: Michel Myers Referring Physician: Michel Myers Performed By: Corrie Shin, KLAUDIA, RVT
--- NOTE | 2023-05-31 15:56 | STRESSREP ---
Stress Test Report Date: 05/27/2023 Procedure: Exercise tolerance test/imaging study Indications: Chest pain, abnormal EKG Consent: Per the patient Procedure: The patient exercised on a Nehemias protocol for 5 minutes and 31 seconds achieving a peak heart rate of 155 bpm (98% predicted maximal heart rate) with a peak blood pressure 178/84 mmHg and a peak MET capacity of 7 METs. The baseline ECG demonstrated normal sinus rhythm. The peak exercise ECG demonstrated no significant ischemic ST-T changes. EKG during recovery revealed no significant ischemic changes [There were no cardiac dysrhythmias pretest, during exercise, or recovery]. The functional capacity was considered normal for age. There was [no complaint of chest discomfort during exercise or recovery]. The examination was discontinued secondary to dyspnea. Impression: 1. Technically adequate (percent predicted maximal heart rate greater than 85%) exercise tolerance test 2. Stress test is negative for exercise-induced EKG changes of ischemia 3. The test test is negative for exercise-induced chest pain 4. Functional capacity is normal for age 5. Nuclear images pending Myocardial perfusion imaging study: Technique: The patient was injected with 15 mCi of technetium 99m Cardiolite and subsequently rest SPECT Cardiolite nuclear imaging was obtained in the horizontal long, vertical long, and short axis views. The patient exercised on a Nehemias protocol. Please see above for details. The patient was injected with 44.7 mCi of technetium 99m Cardiolite and subsequently stress SPECT Cardiolite nuclear imaging was obtained in the horizontal long, vertical long, and short axis views. A gated Cardiolite study at peak stress was obtained. Interpretation: Rest and stress SPECT Cardiolite nuclear imaging status post realignment, normalization, and attenuation correction, demonstrates no evidence of significant ischemia or infarction. The gated Cardiolite study demonstrates no significant regional wall motion abnormalities. The reported LVEF is 66%. Impression: 1. There is no evidence of significant ischemia or infarction. 2. The gated Cardiolite study reports an LVEF of 66%. This note was generated with [employer] software. It may contain incorrect words, spelling, and punctuation that were not noted in checking the note before signing.
== END | disposition home or self-care (01) ==
PROVIDERS: PCP Family Medicine; Referring Provider Family Medicine; Visit Provider Family Medicine
DX: R07.9 Chest pain, unspecified (principal); I34.1 Nonrheumatic mitral (valve) prolapse
CPT/HCPCS: 78452; 93017; 93306; A9500; A4216

== ENCOUNTER → 2023-07-15 | Outpatient (CLI) | payer OTHER, SELFPAY | END | disposition home or self-care (01) | PROVIDERS: PCP Family Medicine; Referring Provider Internal Medicine Cardiovascular Disease; Visit Provider Internal Medicine Cardiovascular Disease | DX: R00.2 Palpitations (principal) | CPT/HCPCS: 93225; 93226 ==

== ENCOUNTER → 2023-09-13 | Outpatient (CLI) | payer OTHER, SELFPAY ==
[2023-09-13 10:41] LABS: Anion Gap 7 (5-15); BUN 30 mg/dL (7-18); Calcium,Total 9.8 mg/dL (8.5-10.1); Chloride 102 mmol/L (98-107); Cholesterol 210 mg/dL (200); Creatinine, Serum 1.07 mg/dL (0.55-1.02); EST Glomerular Filtration Rate 55 mL/min (>60); Est Glom Filt Rate - Afr Amer 67 mL/min (>60); Glucose 114 mg/dL (74-106); High Density Lipoprotein 47 mg/dL; Potassium 3.9 mmol/L (3.5-5.1); Sodium Level 135 mmol/L (136-145); Triglycerides 287 mg/dL; Very Low Density Lipoprotein 57 mg/dL (5-40)
[2023-09-13 14:06] LABS: Hemoglobin A1c 5.7 % (3.8-5.6)
== END | disposition home or self-care (01) ==
LOC: MTLAB 08:44
PROVIDERS: PCP Family Medicine; Referring Provider Family Medicine; Visit Provider Family Medicine
DX: Z00.00 Encounter for general adult medical examination without abnormal findings (principal)
CPT/HCPCS: 36415; 80048; 80061; 83036

== ENCOUNTER → 2023-12-17 | Outpatient (CLI) | payer OTHER, SELFPAY ==
[2023-12-17 12:27] LABS: Cholesterol 167 mg/dL (200); High Density Lipoprotein 39 mg/dL; Triglycerides 275 mg/dL; Very Low Density Lipoprotein 55 mg/dL (5-40)
== END | disposition home or self-care (01) ==
PROVIDERS: PCP Family Medicine; Visit Provider Family Medicine
DX: E78.5 Hyperlipidemia, unspecified (principal)
CPT/HCPCS: 36415; 80061

== ENCOUNTER → 2024-03-25 | Outpatient (CLI) | payer OTHER, SELFPAY ==
[2024-03-25 14:02] LABS: ALB/GLOB Ratio 1.1 RATIO (0.9-2.4); AST(SGOT) 34 U/L (15-37); Alanine Aminotransfer ALT/SGPT 44 U/L (13-56); Albumin, Serum 3.8 g/dL (3.2-5.0); Alkaline Phosphatase 87 U/L (45-117); Anion Gap 11 (5-15); BUN 21 mg/dL (7-18); BUN/Creat Ratio 23.8 RATIO (10-20); Calcium,Total 9.9 mg/dL (8.5-10.1); Chloride 105 mmol/L (98-107); Cholesterol 138 mg/dL (200); Creatinine, Serum 0.88 mg/dL (0.55-1.02); EST Glomerular Filtration Rate 69 mL/min (>60); Est Glom Filt Rate - Afr Amer 83 mL/min (>60); Globulin 3.4 g/dL (2.2-4.2); Glucose 115 mg/dL (74-106); High Density Lipoprotein 41 mg/dL; Potassium 3.7 mmol/L (3.5-5.1); Protein, Total 7.2 g/dL (6.4-8.2); Sodium Level 140 mmol/L (136-145); Triglycerides 246 mg/dL; Very Low Density Lipoprotein 49 mg/dL (5-40)
== END | disposition home or self-care (01) ==
LOC: MFPLAB 09:46
PROVIDERS: PCP Family Medicine; Visit Provider Family Medicine
DX: E78.5 Hyperlipidemia, unspecified (principal)
CPT/HCPCS: 36415; 80053; 80061

== ENCOUNTER → 2024-04-30 | Outpatient (CLI) | payer OTHER, SELFPAY ==
--- NOTE | 2024-04-30 10:17 | RAD_ITS ---
STUDY: X-RAY - LEFT KNEE REASON FOR EXAM: Female, 64 years old. PAIN TECHNIQUE: 4 views of the left knee. COMPARISON: None. FINDINGS: Normal visualized distal femur. Normal visualized proximal tibia and fibula. Normal proximal tibiofibular articulation. There is no demonstrated fracture. There is mild degenerative arthrosis of the medial femorotibial compartment. Normal lateral femorotibial compartment. There is mild degenerative arthrosis of the patellofemoral articulation. There is a small knee joint effusion. The soft tissue structures are unremarkable. RAD/Knee 4 or More Views IMPRESSION: Mild degenerative arthrosis of the patellofemoral and medial femorotibial compartments. Small joint effusion. No demonstrated fracture. Electronically Signed: Macario Davila MD at 14:24 EST ,
--- NOTE | 2024-04-30 10:17 | RAD_ITS ---
STUDY: X-RAY - RIGHT KNEE REASON FOR EXAM: Female, 64 years old. PAIN TECHNIQUE: 4 views of the right knee. COMPARISON: None. FINDINGS: Normal visualized distal femur. Normal visualized proximal tibia and fibula. Normal proximal tibiofibular articulation. There is no demonstrated fracture. There is mild degenerative arthrosis of the medial femorotibial compartment. There is mild degenerative arthrosis of the lateral femorotibial compartment. There is mild degenerative arthrosis of the patellofemoral articulation. There is a small joint effusion. The soft tissue structures are unremarkable. RAD/Knee 4 or More Views IMPRESSION: Mild tricompartment degenerative arthrosis. Small joint effusion. No demonstrated fracture. Electronically Signed: Macario Davila MD at 14:31 EST ,
--- NOTE | 2024-04-30 10:17 | RAD_ITS ---
INDICATION: RIGHT HIP PAIN EXAMINATION/TECHNIQUE: X-RAY - XR Hips Bilateral with Pelvis when performed; Min 5 Views COMPARISON: No relevant prior comparison study available. FINDINGS: PELVIC BONES: No displaced fracture, destructive or sclerotic lesions. Note that overlapping bowel shadows may however obscure fine detail. Sacroiliac joints are unremarkable. No widening of the pubic symphysis. HIPS: There is a 5 mm well corticated ossified structure lateral to the right superior acetabulum, which could represent an os acetabulum. The left hip is unremarkable. No displaced fracture. SOFT TISSUES: No soft tissue swelling or gas. RAD/Hips B/L min 2 views w/ Pelvis IMPRESSION: 5 mm well corticated ossified structure lateral to the right superior acetabulum, which could represent an os acetabulum. No evidence of displaced pelvic or hip fracture. Electronically Signed: Macario Davila MD at 14:50 EST ,
[2024-05-01 04:07] LABS: Immunoglobulin G 957 mg/dL (586-1602)
== END | disposition home or self-care (01) ==
PROVIDERS: PCP Family Medicine
DX: M25.551 Pain in right hip (principal); M25.561 Pain in right knee; M25.562 Pain in left knee; D80.1 Nonfamilial hypogammaglobulinemia
CPT/HCPCS: 36415; 73521; 73564; 82784

== ENCOUNTER → 2024-05-20 | Outpatient (CLI) | payer OTHER, SELFPAY ==
--- NOTE | 2024-05-20 10:53 | BI_ITS ---
MAMMOGRAPHY - BILATERAL SCREENING REASON FOR EXAM: Female, 64 years old. Routine annual screening examination. PERTINENT HISTORY: Non-contributory. Prior bilateral excisional breast biopsies. TECHNIQUE: Digital bilateral breast arnel (3D mammographic acquisition) in the CC and MLO projections. 2-D mediolateral oblique (MLO) and craniocaudad (CC) views of both breasts were obtained. CAD: Full Field Digital Mammography with Computer Added Detection was performed. COMPARISON: Comparison is made with prior study dated July 19, 2022 and October 07, 2020. FINDINGS: Breast Composition: The breasts are heterogeneously dense, which may obscure small masses. There are no dominant masses or suspicious calcifications. Stable small benign appearing bilateral axillary lymph nodes. A tissue clip marker is once again seen in the anterior inferior retroareolar region of the left breast. No other significant abnormalities are identified. There has been no significant change since the prior study. BI/SCRN MAMM (CAD)W/ARNEL BILAT IMPRESSION: Stable bilateral screening mammogram. Yearly follow-up mammogram recommended. (A) ASSESSMENT CATEGORY: BIRADS Category 2: Benign. A letter regarding these results will be sent to the patient by the facility within 30 days. Approximately 10% of breast cancers are not detected by mammography. A normal mammogram should not delay biopsy of a clinically suspicious abnormality. [id number] Electronically Signed: Octavio Worley MD at 13:06 EST ,
== END | disposition home or self-care (01) ==
LOC: OPBI 10:51
PROVIDERS: PCP Family Medicine; Referring Provider Family Medicine; Visit Provider Family Medicine
DX: Z12.31 Encounter for screening mammogram for malignant neoplasm of breast (principal)
CPT/HCPCS: 77063; 77067

== ENCOUNTER → 2024-05-22 | Outpatient (CLI) | payer OTHER, SELFPAY ==
--- NOTE | 2024-05-22 14:05 | RAD_ITS ---
STUDY: X-RAY - LUMBAR SPINE REASON FOR EXAM: Female, 64 years old. Back pain following a twisting injury. TECHNIQUE: 5 view(s) of the lumbar spine were obtained including oblique views. COMPARISON: None FINDINGS: Normal lumbar lordosis. There is no substantial scoliosis. There is a normal alignment of the vertebrae. Displaced narrowing and spondylosis at the L2-L3 level. The soft tissue structures are unremarkable. RAD/L/S Spine Min 4 Views IMPRESSION: Degenerative changes of the spine, as detailed above. Electronically Signed: Octavio Worley MD at 14:34 EST ,
== END | disposition home or self-care (01) ==
LOC: MTRAD 14:00
PROVIDERS: PCP Family Medicine; Referring Provider Family Medicine; Visit Provider Family Medicine
DX: M54.9 Dorsalgia, unspecified (principal)
CPT/HCPCS: 72110

== ENCOUNTER → 2024-09-24 | Outpatient (CLI) | payer OTHER, SELFPAY ==
[2024-09-24 13:33] LABS: Cholesterol 153 mg/dL (<=200); High Density Lipoprotein 36 mg/dL; Low Density Lipoprotein Calc. 50 mg/dL; Triglycerides 336 mg/dL; Very Low Density Lipoprotein 67 mg/dL (5-40); cholesterol:hdl ratio screen 4.31
[2024-09-24 14:02] LABS: ALB/GLOB Ratio 1.5 RATIO (0.9-2.4); AST(SGOT) 33 U/L (<=31); Alanine Aminotransfer ALT/SGPT 36 U/L (<=34); Albumin, Serum 4.3 g/dL (3.4-4.8); Alkaline Phosphatase 94 U/L (35-104); Anion Gap 15 (5-15); BUN 25 mg/dL (4-19); BUN/Creat Ratio 29.2 RATIO (10-20); Calcium,Total 9.7 mg/dL (7.6-11.0); Carbon Dioxide 21.3 mmol/L (21.0-32.0); Chloride 102 mmol/L (98-108); Creatinine, Serum 0.85 mg/dL (0.70-1.20); EST Glomerular Filtration Rate 77 (>60); Glucose 130 mg/dL (70-99); Potassium 3.6 mmol/L (3.3-5.1); Protein, Total 7.3 g/dL (5.9-8.4); Sodium Level 138 mmol/L (133-145); Total Bilirubin 0.44 mg/dL (0.00-1.30)
== END | disposition home or self-care (01) ==
LOC: MFPLAB 10:18
PROVIDERS: PCP Family Medicine; Referring Provider Family Medicine; Visit Provider Family Medicine
DX: E78.5 Hyperlipidemia, unspecified (principal)
CPT/HCPCS: 36415; 80053; 80061

== ENCOUNTER → 2024-10-30 | Outpatient (CLI) | payer OTHER, SELFPAY ==
--- NOTE | 2024-10-30 16:39 | RAD_ITS ---
PROCEDURE: KNEE 4 OR MORE VIEWS 10/30/2024 REASON FOR EXAM: KNEE PAIN TECHNIQUE: 4 view(s) of the right knee COMPARISON: 04/30/2024 FINDINGS: No fracture or dislocation. [id number] joint effusion now present. Tricompartmental mild appearing osteoarthrosis not significantly changed. Enthesophyte formation again seen at the quadriceps side of the patella. RAD/Knee 4 or More Views IMPRESSION: Puhof-hq-[id number] joint effusion now present. Tricompartmental mild appearing osteoarthrosis not significantly changed. Reading Location: [id number]
== END | disposition home or self-care (01) ==
LOC: MTRAD 16:38
PROVIDERS: PCP Family Medicine; Referring Provider Family Medicine; Visit Provider Family Medicine
DX: M25.561 Pain in right knee (principal)
CPT/HCPCS: 73564

== ENCOUNTER → 2024-12-02 | Outpatient (CLI) | payer OTHER, SELFPAY ==
--- OUTSIDE RECORDS SUMMARY | 2024-12-02 20:24 | XMS RPT_ITS | CCD ---
Author Organization [facility] Care Team Providers Care Sales Agent [employer] Insurance Name Role Phone [employer] Unavailable Unavailable [employer] Unavailable Unavailable NO REFERRING Unavailable Unavailable [employer] Unavailable Unavailable [employer] Unavailable Unavailable Yunior Low Primary Care Provider Michel Ochoa MD Primary Care Provider Louis, Dr. Pearson Primary Care Provider Louis, Dr. Pearson Referring Provider Amy WALL, PA Nicki Castellon Attending Provider Michel Ochoa MD Primary Care Provider Dr. Michel Ochoa Primary Care Provider Dr. Joan Hannah Attending Provider Dr. Joan Hannah Referring Provider Dr. Michel Ochoa Referring Provider Dr. Michel Ochoa Other Provider Dr. Jennifer Matos Attending Provider Dr. Michel Ochoa Primary Care Provider Dr. Joan Hannah Attending Provider Dr. Joan Hannah Referring Provider Dr. Michel Ochoa Referring Provider Dr. Michel Ochoa Other Provider Dr. Jennifer Matos Attending Provider Dr. Jennifer Matos Referring Provider KARNANI, MARYLOU Referring Unavailable AGUSTINAI, MARYLOU Attending Unavailable OCHOA, MICHEL R Primary Care Unavailable OCHOA, MICHEL R Primary Care Unavailable REFERRED, SELF Referring Unavailable AGUSTINAI, MARYLOU Attending Unavailable OCHOA, MICHEL R Primary Care Unavailable REFERRED, SELF Referring Unavailable SOHANANI, MARYLOU Attending Unavailable Ochoa , Dr. Pearson Primary Care Provider Louis ANGUIANO, Dr. Pearson Attending Provider [phone] Louis ANGUIANO, Dr. Pearson Referring Provider Thor CONSUMER LOAN SPECIALIST-C, Yamilka Attending Provider Thor CONSUMER LOAN SPECIALIST-C, Yamilka Referring Provider Santos ANGUIANO, Dr. Wong Attending Provider Ochoa, Michel Referring Unavailable Ochoa, Michel Attending Unavailable Ochoa, Michel Primary Care Unavailable Ochoa, Michel Attending Unavailable Ochoa, Michel Referring Unavailable Ochoa, Michel Primary Care Unavailable Ochoa, Michel Attending Unavailable Ochoa, Michel Referring Unavailable Ochoa, Michel Primary Care Unavailable Ochoa, Michel Attending Unavailable Ochoa, Michel Referring Unavailable Ochoa, Michel Primary Care Unavailable Ochoa, Michel Consulting Unavailable Ochoa, Michel Primary Care Unavailable HERNANDEZ, ALEX Attending Unavailable HERNANDEZ, ALEX Referring Unavailable Ochoa, Michel Attending Unavailable Ochoa, Michel Primary Care Unavailable Ochoa, Michel Primary Care Unavailable Vincenzo Rucker Attending Unavailable Thor CONSUMER LOAN SPECIALIST, Yamilka Referring Unavailable Ochoa, Michel Primary Care Unavailable Thor CONSUMER LOAN SPECIALIST, Yamilka Attending Unavailable Ochoa, Michel Referring Unavailable Ochoa, Michel Primary Care Unavailable Thor CONSUMER LOAN SPECIALIST, Yamilka Attending Unavailable Marvin Graham Attending Unavailable Ochoa, Michel Primary Care Unavailable Thor CONSUMER LOAN SPECIALIST, Yamilka Referring Unavailable Ochoa, Michel Primary Care Unavailable Thor CONSUMER LOAN SPECIALIST, Yamilka Attending Unavailable Allergies Allergy Classification Reported Allergen(s) Allergy Type Date of Onset Reaction(s) Facility (2 sources) erythromycin; Translations: [ERYTHROMYCIN] Drug Allergy 8 [facility] Repository (4 sources) Adhesive Tape; Translations: [TAPE ALLERGY] Allergy to substance 0 Rash [facility] (4 sources) Milk-Related Compounds; Translations: [MILK-RELATED COMPOUNDS] Propensity to adverse reactions 4 [facility] (8 sources) Erythromycin Drug Allergy 2 PT UNSURE OF REACTION, Nausea [facility] (5 sources) Adhesive Tape; Translations: [adhesive tape] Allergy to substance 4 Rash [facility] (4 sources) buPROPion Drug Allergy 4 not effective [facility] (4 sources) FLUoxetine Drug Allergy 4 sexual dysfunction [facility] (1 source) buPROPion Drug Allergy 5 [facility] Repository (1 source) Erythromycin Drug Allergy 5 [facility] Repository (1 source) FLUoxetine Drug Allergy 5 [facility] Repository Medications Current Medications Medication Drug Class(es) Dates Sig (Normalized) Sig (Original) [id number] 200 actuat albuterol 0.09 mg/actuat metered dose inhaler (12 sources) beta2-Adrenergic Agonist Start: 06-13-2023 Albuterol Sulfate 90 mcg/actuation HFA aerosol inhaler Active 2 NMA INHALATION Q4H as needed for shortness of breath or wheezing June 13, 2023 1:00am Start: 06-13-2023 Albuterol Sulf ate Active 2 INH INHALATION Q4H June 13, 2023 1:00am Start: 05-20-2020 take 2 puff(s) by in halation every four hours as needed for cough albuterol 108 (90 Base) MCG/ACT inhaler Inhale 2 Puffs into the lungs every 4 hours as needed for Wheezing, Shortness of Breath or Cough (With spacer) 3 Each 3 05/21/2022 Active ARIPiprazole 5 mg oral tablet (3 sources) Atypical Antipsychotic ARIPiprazole (ABILIF Y) 5 MG tablet Take by mouth daily 0 Active aspirin 81 mg delayed release oral tablet (2 sources) Platelet Aggregation Inhibitor, Nonsteroidal Anti-inflammatory Drug Start: 024 Aspirin (Adult Low Dose Aspirin) 81 mg tablet,delayed release (DR/EC) Active 81 mg PO DAILY September 24, 2023 12:00am azelastine hydrochloride 0.137 mg/actuat metered dose nasal spray (6 sources) Histamine-1 Receptor Antagonist Start: 015 azelastine (ASTELIN) 0.1 % nasal spray 1 Dry [place] by Each Nare route 2 times daily 90 mL 3 11/23/2016 Active azithromycin 250 mg oral tablet (2 sources) Macrolide Antimicrobial Start: 06-06-2 023 azithromycin (ZITHROMAX) 250 MG tablet 2 tabs (500 mg) today, then 1 tab (250 mg) days 2-5. 6 Tablet 0 11/20/2022 Active Calcium Carbonate / Vitamin D (2 sources) Calcium Carbonate-Vitamin D (CALCIUM-D PO) Take by mouth 0 Active cholecalciferol 0.05 mg oral capsule (7 sources) Vitamin D Start: 023 take 1 capsule by mouth once daily Cholecalciferol (Vitamin D3) 50 mcg (2,000 unit) capsule Active 50 ug PO DAILY June 13, 2023 1:00am take 5000 [IU] by mouth once paulette ly Cholecalciferol (VITAMIN D-3 PO) Take 5,000 Units by mouth daily. 0 Active diazePAM 5 mg oral tablet (4 sources) Benzodiazepine Start: 06-13-2023 take 1 tablet by mouth twice daily as needed for muscle spasms Diazepam 5 mg tablet Active 5 mg PO TWICE A DAY as needed for muscle spasm June 13, 2023 1:00am [id number] 0.3 ml EPINEPHrine 1 mg/ml auto-injector (10 sources) alpha-Adrenergic Agonist, beta-Adrenergic Agonist, Catecholamine Start: 12-01-2021 EPINEPHrine 0.3 MG injection Inject 1 Auto-Injector (0.3 mg) into the muscle once as needed for Allergies 2 Each 1 11/20/2022 Active Start: 05-20-2020 EPINEPHrine (E PIPEN 2-KINZA) 0.3 MG injection Inject 1 Auto-Injector (0.3 mg) into the muscle once as needed (allergic reaction) for up to 1 dose 2 Each 1 05/20/2020 Active Start: 11-28-2018 EPINEPHrine 0. 3 MG/0.3ML injection Inject 0.3 mL (0.3 mg) into the muscle once as needed for Allergies 2 Each 1 11/28/2018 Active fenofibrate 160 mg oral tablet (18 sources) Peroxisome Proliferator Receptor alpha Agonist Start: 06-13-2023 take 1 tablet by mouth once daily Fenofibrate 160 mg tablet Active 160 mg PO DAILY June 13, 2023 1:00am Start: 05-12-2015 End: 03-11-2022 take 1 tablet by mouth once daily Fenofibrate (Lofibra) 160 MG tablet Discontinued 160 mg PO DAILY May 12, 2015 1:00am March 11, 2022 1:04pm Comment on above: Take 160 mg by mouth once daily. fexofenadine hydrochloride 60 mg oral tablet (3 sources) Histamine-1 Receptor Antagonist fexofenadine (ALLEGR A) 60 MG tablet Take by mouth 2 times daily 0 Active hydroCHLOROthiazide 25 mg oral tablet (15 sources) Thiazide Diuretic Start: 2022 take 1 tablet by mouth once daily Hydrochlorothiazide 25 mg tablet Active 25 mg PO DAILY June 13, 2023 1:00am Start: 03-11-2022 End: 06-13-2023 take 1 capsule by mouth once daily Hydrochlorothiazide 12.5 mg capsule Discontinued 12.5 mg PO DAILY March 11, 2022 12:00am June 13, 2023 2:43pm take 1 tablet by magdiel th once daily hydrochlorothiazide (HYDRODIURIL) 25 MG TABS tablet Take 1 Tablet (25 mg) by mouth daily 0 Active 5 ml immunoglobulin g, human 200 mg/ml injection (20 sources) Human Immunoglobulin G Start: 06-13-2023 Immun G lob G(Igg)-Pro-Iga 0-50 (Hizentra) 1 gram/5 mL (20 %) solution Active 96634 mg SC EVERY WEEK June 13, 2023 2:42pm Start: 03-11-2022 End: 06-13-2023 Immun Glob G(Igg)-Pro-Iga 0- 50 (Hizentra) 1 gram/5 mL (20 %) solution Discontinued PR March 11, 2022 12:00am June 13, 2023 2:47pm Start: 03-11-2022 End: 06-13-2023 Immun Glob G(Igg)-Pro-Iga 0- 50 (Hizentra) 1 gram/5 mL (20 %) solution Discontinued SC March 11, 2022 12:00am June 13, 2023 2:47pm Start: 05-16-2018 Immune Globuli n, Human, (HIZENTRA) 10 GM/50ML SOLN Infuse 10 grams SubQ once weekly 200 mL 04/15/2023 Active Start: 05-16-2018 Immune Globuli n, Human, (HIZENTRA) 2 GM/10ML SOLN subcutaneous 2 gm (total 10 mL) to be infused subcutaneously weekly.. 4 Vial 05/16/2018 Active Start: 05-28-2017 inject 8 g by subcut aneous injection every week Immune Globulin, Human, (HIZENTRA) 4 GM/20ML SOLN subcutaneous 8 grams - (Total 40 mL) to be infused subcutaneously weekly. 8 Vial 11 05/28/2017 Active Insulin Infusion Pump Supplies [facility] [place] Start: 06-27-2015 Insulin Infusi on Pump Supplies [facility] [place] equipment for SCIG infusions 8 Each 11 06/27/2015 Active ipratropium bromide 0.021 mg/actuat metered dose nasal spray (5 sources) Anticholinergic Start: 06-13-2023 Ipratropium Br omide 21 mcg (0.03 %) spray,non-aerosol Active 2 NMA INTRANASAL TWICE A DAY June 13, 2023 1:00am Start: 06-13-2023 Ipratropium Br omide Active 2 SPRAY INTRANASAL TWICE A DAY June 13, 2023 1:00am Start: 11-21-2022 ipratropium (A TROVENT) 0.03 % nasal spray 1 Dry Branch by Each Nare route 2 times daily 30 mL 5 11/21/2022 Active latanoprost 0.05 mg/ml ophthalmic solution (8 sources) Prostaglandin Analog Start: 07-08-[address] 0.005 % drops Active 1 NMA OPHTHALMIC EVERY EVENING July 08, 2023 1:00am Start: 01-01-2011 take 1 drop(s) into the eye(s) once daily at bedtime latanaprost (XALATAN) 0.005 % OPHTHALMIC ophthalmic solution 1 Drop daily at bedtime. 0 01/01/2011 Active take 1 drop(s) into the eye(s) once daily at bedtime latanoprost (XALATAN) SOLN ophthalmic solution instill 1 Drop into both eyes nightly at bedtime 0 Active Comment on above: 1 Drop daily at bedt mike. methylPREDNISolone 4 mg oral tablet (2 sources) Corticosteroid Start: 2021 take 1-6 tablets by mouth once daily methylPREDNISolone (MEDROL) 4 MG Dose-Kinza (21 EACH) Take 1-6 Tablets (4-24 mg) by mouth daily Follow printed directions on package. [On Stand By] 21 Each 1 06/01/2022 Active Start: 06-01-2022 take 1-6 tablets by mouth once daily methylPREDNISolone (MEDROL) 4 MG Dose-Kinza (21 EACH) Take 1-6 Tablets (4-24 mg) by mouth daily Follow printed directions on package. [On Stand By] 21 Each 1 06/01/2022 Active nitrofurantoin, macrocrystals 25 mg / nitrofurantoin, monohydrate 75 mg oral capsule (7 sources) Nitrofuran Antibacterial Start: 06-13-2023 take 1 capsule by mouth at bedtime Nitrofurantoin Monohyd/M-Cryst 100 mg capsule Active 100 mg PO AT BEDTIME June 13, 2023 1:00am take 1 capsule by mouth at bedti me nitrofurantoin monohydrate (MACROBID) 100 MG capsule Take 1 Capsule (100 mg) by mouth At bedtime 0 Active Valley-3 Fatty Acids (2 sources) Start: 06-13-2023 take 2000 mg by mout h once daily Valley-3 Fatty Acids Active 2000 MG PO DAILY June 13, 2023 1:00am Start: 06-13-2023 take 2000 mg by mouth once paulette ly Valley-3 Fatty Acids Active 2000 MG PO DAILY June 13, 2023 12:00am Valley-3 Fatty Acids (FISH OIL) 1200 MG CAPS (3 sources) Valley-3 Fatty Ac ids (FISH OIL) 1200 MG CAPS Take by mouth daily. 0 Active Valley-3 Fatty Acids 1,000 mg capsule (2 sources) Start: 06-13-2023 take 1 capsule by mouth once daily Valley-3 Fatty Acids 1,000 mg capsule Active 2000 mg PO DAILY June 13, 2023 1:00am omeprazole 20 mg delayed release oral capsule (14 sources) Proton Pump Inhibitor Start: 10-06-2018 take 1 capsule by mouth once daily Omeprazole 20 mg capsule,delayed release(DR/EC) Active 20 mg PO DAILY March 11, 2022 12:00am pentafluoroprop-tetr afluoroeth (GEBAUERS PAIN EASE) topical spray (3 sources) Start: 02-25-2023 pentafluoroprop-tet rafluoroeth (GEBAUERS PAIN EASE) topical spray Apply to affected area as needed for Pain 103.5 mL 3 02/25/2023 Active Start: 06-29-2022 pentafluoropro p-tetrafluoroeth (GEBAUERS PAIN EASE) topical spray Apply to affected area as needed for Pain 103.5 mL 3 06/29/2022 Active Start: 08-04-2019 pentafluoropro p-tetrafluoroeth (GEBAUERS PAIN EASE) topical spray Apply to affected area as needed for Pain 103.5 mL 3 08/04/2019 Active predniSONE 10 mg oral tablet (12 sources) Start: 11-20-2022 End: 11-25-2022 take 2 tablets by mouth twice daily predniSONE (DELTASONE) 10 MG tablet Take 2 Tablets (20 mg) by mouth 2 times daily for 5 days 20 Tablet 1 11/20/2022 11/25/2022 Active Start: 03-11-2022 End: 05-19-2022 Prednisone 10 mg tablet Disc ontinued 10 mg PO .COMPLEX March 11, 2022 12:00am May 19, 2022 12:02pm Take 4 pills for 3 days, 3 pills for 3 days, 2 pills for 3 days, take 1 pill for 3 days Start: 05-25-2019 predniSONE (DE LTASONE) 10 MG tablet Take 1-4 Tabs (10-40 mg) by mouth once as needed (rash or asthma) for up to 1 dose 20 Tab 1 05/25/2019 Active propranolol hydrochloride 40 mg oral tablet (6 sources) beta-Adrenergic Mary Anne Start: 06-13-2023 take 1 tablet by mouth twice daily Propranolol 40 mg tablet Active 40 mg PO TWICE A DAY June 13, 2023 1:00am propranolol (IND ERAL) 40 MG tablet Take by mouth 2 times daily 0 Active rosuvastatin calcium 10 mg oral tablet (2 sources) HMG-CoA Reductase Inhibitor Start: 09-24-2024 take 1 tablet by mouth once daily Rosuvastatin 10 mg tablet Active 10 mg PO daily September 24, 2024 12:00am Spacer/Aero-Holdin g Chambers (Leapset) ASAD DEVICE (3 sources) Start: 05-29-2018 take 1 dose by inhalation twice daily Spacer/Aero-Holdin g Chambers (Leapset) ASAD DEVICE 2 times daily Use as directed with metered-dose inhaler. 1 Each 1 05/29/2018 Active triamcinolone acetonide 0.055 mg/actuat metered dose nasal spray (3 sources) Corticosteroid Start: 02-20-2017 Triamcinolone Acetonide (NASACORT AQ) 55 MCG/ACT nasal inhaler 1-2 Sprays by Each Nare route daily 16 g 11 02/20/2017 Active 24 hr venlafaxine 150 mg extended release oral capsule (20 sources) Serotonin and Norepinephrine Reuptake Inhibitor Start: 06-13-2023 take 1 capsule by mouth once daily Venlafaxine 150 mg capsule,extended release 24hr Active 150 mg PO DAILY June 13, 2023 1:00am Start: 06-13-2023 take 1 tablet by magdiel th once daily Venlafaxine 75 mg tablet Active 75 mg PO DAILY June 13, 2023 1:00am Start: 05-12-2015 End: 03-11-2022 Venlafaxine 100 MG tablet Discontinued 150 mg PO DAILY May 12, 2015 1:00am March 11, 2022 1:04pm Start: 05-12-2015 End: 03-11-2022 take 150 mg by mouth once daily Venlafaxine Discontinu ed 150 MG PO DAILY May 12, 2015 1:00am March 11, 2022 1:04pm Start: 04-21-2007 take 1 tablet by magdiel th once daily venlafaxine XR (EFFEXOR XR) 150 mg ORAL Cp24 Take one(1) tablet daily. 0 04/21/2007 Active Comment on above: Take one(1) tablet d aily. Completed/Discontinued Medications Medication Drug Class(es) Dates Sig (Normalized) Sig (Original) acetaminophen 325 mg / oxyCODONE hydrochloride 5 mg oral tablet (1 source) Opioid Agonist Start: 11-04-2012 take 1 tablet by mouth every six hours as needed oxyCODONE-acetami nophen (PERCOCET) 5-325 mg tablet Take 1 tablet by mouth four times daily as needed. FOR PAIN. 30 tablet 0 11/04/2012 Active Comment on above: Take 1 tablet by magdiel th four times daily as needed. FOR PAIN. amoxicillin 875 mg / clavulanate 125 mg oral tablet (10 sources) Penicillin-class Antibacterial Start: 05-12-2015 End: 03-11-2022 take 1 tablet by mouth every twelve hours Amoxicillin-Pot Clavulanate 875 MG tablet Discontinued 875 mg PO Q12H May 12, 2015 1:00am March 11, 2022 1:01pm azaTHIOprine (1 source) Purine Antimetabolite AZATHIOPRINE (AZASAN ORAL) Take by mouth. Nasal spray 0 Active Comment on above: Take by mouth. Nasal spray 120 actuat budesonide 0.16 mg/actuat / formoterol fumarate 0.0045 mg/actuat metered dose inhaler (18 sources) Corticosteroid, beta2-Adrenergic Agonist Start: 06-13-2023 End: 10-19-2023 Budesonide-Formot yaneli (Symbicort) 160-4.5 mcg/actuation HFA aerosol inhaler Discontinued 2 NMA INHALATION TWICE A DAY June 13, 2023 1:00am October 19, 2023 11:32am Start: 06-13-2023 take 1 puff(s) by in halation twice daily Budesonide-Formoterol (Symbicort) 160-4.5 mcg/actuation HFA aerosol inhaler Active 2 PUFF INHALATION TWICE A DAY June 13, 2023 1:00am Start: 03-11-2022 End: 06-13-2023 Budesonide-Formoterol (Symbi pascual) 80-4.5 mcg/actuation HFA aerosol inhaler Discontinued 1 NMA INHALATION ONCE March 11, 2022 12:00am June 13, 2023 2:45pm Start: 03-11-2022 End: 06-13-2023 Budesonide-Formoterol (Symbi pascual) 80-4.5 mcg/actuation HFA aerosol inhaler Discontinued 1 INH INHALATION ONCE March 11, 2022 12:00am June 13, 2023 2:45pm Start: 03-11-2022 End: 06-13-2023 Budesonide-Formoterol (Symbi pascual) 80-4.5 mcg/actuation HFA aerosol inhaler Discontinued 1 INH INHALATION ONCE March 10, 2022 11:00pm June 13, 2023 1:45pm Start: 03-11-2022 Budesonide-For moterol (Symbicort) 80-4.5 mcg/actuation HFA aerosol inhaler Active 1 INH INHALATION ONCE March 11, 2022 12:00am Start: 03-11-2022 Budesonide-For moterol (Symbicort) 80-4.5 mcg/actuation HFA aerosol inhaler Active 1 INH INHALATION ONCE March 10, 2022 11:00pm Start: 05-31-2017 take 2 puff(s) by in halation twice daily budesonide-formoterol (SYMBICORT) 160-4.5 MCG/ACT inhaler Inhale 2 Puffs into the lungs 2 times daily 3 Each 3 06/01/2022 Active COMPOUNDED PRESCRIPTION (1 source) Start: 10-03-2012 COMPOUNDED PRESCRIPTION Biotin 10,000mcg daily 0 10/03/2012 Active Comment on above: Biotin 10,000mcg paulette ly dexamethasone 6 mg oral tablet (8 sources) Corticosteroid Start: 05-19-2022 End: 06-13-2023 take 1 tablet by mouth once daily Dexamethasone 6 mg tablet Discontinued 6 mg PO DAILY May 19, 2022 1:00am June 13, 2023 2:45pm doxycycline hyclate 100 mg oral tablet (2 sources) Tetracycline-class Drug Start: 10-19-2023 End: 10-29-2023 take 1 tablet by mouth twice daily Doxycycline Hyclate 100 mg tablet Discontinued 100 mg PO TWICE A DAY 05 04October 19, 2023 12:00am October 28, 2023 12:00am October 29, 2023 12:06am ergocalciferol 2000 unt oral tablet (1 source) Provitamin D2 Compound ergocalciferol, vitamin D2, 2,000 unit tab Take 50,000 Units by mouth once each week. 0 Active Comment on above: Take 50,000 Units by mouth once each week. 120 actuat formoterol fumarate 0.005 mg/actuat / mometasone furoate 0.2 mg/actuat metered dose inhaler (11 sources) Corticosteroid, beta2-Adrenergic Agonist Start: 05-12-2015 End: 03-11-2022 Mometasone-Formote rol (Dulera 200 Mcg/5 Mcg Inhaler) 8.8 GM HFA aerosol inhaler Discontinued 2 NMA IH TWICE A DAY May 12, 2015 1:00am March 11, 2022 1:04pm Start: 05-12-2015 End: 03-11-2022 take 1 puff(s) by inhalation twice daily Mometasone-Formoterol (Dulera 200 Mcg/5 Mcg Inhaler) 8.8 GM HFA aerosol inhaler Discontinued 2 PUFF IH TWICE A DAY May 12, 2015 1:00am March 11, 2022 1:04pm Mometasone-Formo terol (DULERA) 100-5 mcg/actuation HFAA Inhale as instructed. 0 Active Comment on above: Inhale as instructed . imipramine hydrochloride 10 mg oral tablet (1 source) Tricyclic Antidepressant take 1 tablet by mouth once daily at bedtime imipramine HCl (TOFRANIL) 10 mg tablet Take 10 mg by mouth daily at bedtime. 0 Active Comment on above: Take 10 mg by mouth daily at bedtime. loratadine 10 mg oral tablet (14 sources) Start: 10-04-19 13 End: 03-11-20 22 take 1 tablet by mouth once daily Loratadine (Claritin) 10 MG tablet Discontinued 10 mg PO DAILY May 12, 2015 1:00am March 11, 2022 1:04pm Loratadine (CLAR ITIN PO) Take by mouth 0 Active Loratadine (CLAR ITIN PO) Take by mouth. 0 Active Comment on above: Take 1 tablet by magdiel th once daily as needed. FOR ALLERGY SYMPTOMS montelukast 10 mg oral tablet (10 sources) Leukotriene Receptor Antagonist Start: 5 End: 2 take 1 tablet by mouth once daily Montelukast 10 MG tablet Discontinued 10 mg PO DAILY May 12, 2015 1:00am March 11, 2022 1:04pm Nirmatrelvir-Ritonav ir (8 sources) Start: 2 End: 3 Nirmatrelvir-Ritonavi r (Paxlovid (Eua)) 300 mg (150 mg x 2)-100 mg tablets,dose pack Discontinued 0 PO .COMPLEX May 19, 2022 1:00am June 13, 2023 2:45pm take TWO 150 mg tablets of nirmatrelvir with ONE 100 mg tablet of ritonavir twice daily for 5 days PO Start: 05-19-2022 End: 06-13-2023 Nirmatrelvir-Ritonavir (Paxl ovid (Eua)) 300 mg (150 mg x 2)-100 mg tablets,dose pack Discontinued 0 PO .COMPLEX May 19, 2022 12:00am June 13, 2023 1:45pm take TWO 150 mg tablets of nirmatrelvir with ONE 100 mg tablet of ritonavir twice daily for 5 days PO Start: 05-19-2022 Nirmatrelvir-R itonavir (Paxlovid (Eua)) 300 mg (150 mg x 2)- 100 mg tablets,dose pack Active 0 PO .COMPLEX May 19, 2022 1:00am take TWO 150 mg tablets of nirmatrelvir with ONE 100 mg tablet of ritonavir twice daily for 5 days PO Start: 05-19-2022 Nirmatrelvir-R itonavir (Paxlovid (Eua)) 300 mg (150 mg x 2)- 100 mg tablets,dose pack Active 0 PO .COMPLEX May 19, 2022 12:00am take TWO 150 mg tablets of nirmatrelvir with ONE 100 mg tablet of ritonavir twice daily for 5 days PO Valley-3 Fatty Acids-Vitamin E (FISH OIL) 1,000 mg cap (1 source) Start: 10-03-2012 Valley-3 Fatty Acids-Vitamin E (FISH OIL) 1,000 mg cap Take 2 capsules by mouth. 0 10/03/2012 Active Comment on above: Take 2 capsules by out. ondansetron 4 mg disintegrating oral tablet (4 sources) Serotonin-3 Receptor Antagonist Start: 06-13-2023 End: 07-08-2023 Ondansetron 4 mg tablet,disintegrati ng Discontinued 4 mg translingual THREE TIMES A DAY as needed June 13, 2023 1:00am July 08, 2023 10:42am raNITIdine 150 mg oral tablet (1 source) Histamine-2 Receptor Antagonist take 150 mg by mouth twice daily RANITIDINE HCL (ZANTAC 150 EFFERDOSE ORAL) Take 150 mg by mouth twice daily. 0 Active Comment on above: Take 150 mg by mouth twice daily. Trimethoprim (1 source) Dihydrofolate Reductase Inhibitor Antibacterial TRIMETHOPRIM ORAL Take by mouth. 0 Active Comment on above: Take by mouth. Problems Active Problems Problem Classification Problem Date Documented Date Episodic/Chronic Acute and chronic tonsillitis (3 sources) Chronic tonsillitis; Translations: [CHRONIC TONSILLITIS] Onset: 03-12-2017 Chronic Asthma (3 sources) Moderate asthma; Translations: [Unspecified asthma, uncomplicated] Onset: 12-03-2013 12-03-2013 Chronic Cardiac dysrhythmias (8 sources) Palpitations; Translations: [Palpitations] 07-08-2023 Episodic Chronic obstructive pulmonary disease and bronchiectasis (4 sources) Chronic bronchitis; Translations: [Unspecified chronic bronchitis] Onset: 08-01-2015 08-01-2015 Chronic Disorders of lipid metabolism (15 sources) Hypertriglyceridemia; Translations: [Hypercholesterolemia] Onset: 04-23-2008 04-23-2008 Chronic Esophageal disorders (3 sources) Gastroesophageal reflux disease; Translations: [Gastro-esophageal reflux disease without esophagitis] Onset: 12-03-2013 12-03-2013 Chronic Essential hypertension (8 sources) Hypertensive disorder; Translations: [Essential (primary) hypertension] 07-08-2023 Chronic Heart valve disorders (4 sources) Mitral valve prolapse; Translations: [Nonrheumatic mitral (valve) prolapse] 06-13-2023 Chronic Immunity disorders (10 sources) Hypogammaglobulinemia; Translations: [Nonfamilial hypogammaglobulinemia] Onset: 05-29-2015 Chronic Nonmalignant breast conditions (1 source) Lump in left breast; Translations: [Left breast lump] Onset: 09-28-2012 09-28-2012 Nonspecific chest pain (12 sources) Chest pain; Translations: [Chest pain, unspecified] Onset: 09-24-2024 04-20-2023 Episodic Other hereditary and degenerative nervous system conditions (4 sources) Essential tremor; Translations: [Essential tremor] 07-08-2023 Chronic Comment on above: On propranolol Other non-traumatic joint disorders (1 source) Pain in right knee; Translations: [Pain in right knee] Onset: 11-03-2024 Episodic Other nutritional; endocrine; and metabolic disorders (1 source) Metabolic syndrome X; Translations: [Dysmetabolic syndrome X] Onset: 05-19-2008 05-19-2008 Chronic Other upper respiratory disease (3 sources) Allergic rhinitis; Translations: [Allergic rhinitis, unspecified]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 probably think in hindsight was depressed and this also has improved. NOW: Hizentra 10g every 10 days since . But sensing since spacing this out, more fatigue, joint aches. IgG did drop to 900's from 1200's. Then this fall/winter, infection theme might be re-emerging. Did have a bronchitis - cough, productive, some discoloration, chills initially. Did have a sinusitis also - PND, thickened, some blood with the mucus, mild frontal headache. Abx total 2x, was near abx free with higher levels. No penumonia. Otherwise, asthma seems good, some cough, manageable. Rare wheeze, rare SOB, exertion seems good. Albuterol average maybe once a month, except for the bronchitis above Over interim did also have a disc back injury, did get prednisone. Prior to SQIG, was abx 4 to 6x per year. Did have a no abx 2019. This year a few more 2021. Wt steady, good appetite, no fever. Hizentra. Injection site no real discomfort. Does pre-med with benadryl&zyrtec&tylenol, this helps the whole process, overall tolerable Helping, infection rate down overall. Osteopenia, observation currently, on vit D, difficulty in tolerating Ca++ Breo sore throat, wixela dysphonia, currently tolerating wixela as 1 puff daily PMHx: Gerd, chol/TG, depression, MVP, noDM (maybe pre), noHTN Essentially Tremor (propanolol) PSHx: SUDARSHAN, back L2-L5, breast abscess, tonsilectomy FMHx: Maybe asthma dad Pets/Soc: Dogs, non smoker, TCU 7100 Review of Systems See HPI Review of Systems: Constitution: Negative. Respiratory: Negative. Cardiovascular: Negative. HENT: Negative. Musculoskeletal: Negative. Gastrointestinal: Negative. Neurological: Negative for light-headedness. Skin: Negative Vitals: 05/29/24 1100 BP: 122/68 Pulse: 53 Objective: Physical Exam Constitutional: General: She is not in acute distress. HENT: Ears: Right Ear: Tympanic membrane normal. Left Ear: Tympanic membrane normal. Nose: Nasal mucosa: Pale mucosa Eyes: Conjunctiva/sclera: Conjunctivae normal. Cardiovascular: Rate and Rhythm: Normal rate and regular rhythm. Heart sounds: No murmur heard. Pulmonary: Breath sounds: Normal breath sounds. Abdominal: Palpations: Abdomen is soft. There is no hepatosplenomegaly. Tenderness: There is no abdominal tenderness. Lymphadenopathy: No other adenopathy present. Skin: Findings: No rash. Assessment: 1. Hypogammaglobulinemia 2. Localized pain 3. Moderate persistent asthma without complication 4. Frequent infections 5. Chronic sinusitis, unspecified location 6. Chronic bronchiolitis LOS - Visit addressed 3 active medical problem(s) being of moderate complexity. Good discussion with patient/family on medical diagnoses, current/future treatment plans taking conditions' risk into account. Application for increased frequency of HIZENTRA dosing. - we'd like to increase dosing frequency to HIZENTRA 10 grams sub-q once every 7 days (currently 10g every 10 days) - dx: Hypogammaglobulinemia, on Hizentra since 2015 with good result - patient with increase infection theme of sinusitis and bronchitis this year -- increased fatigue, myalgias and arthralgias -- 3 rounds of antibiotics needed over past 6 months, was 2 per year prior -- IgG trending downward, IgG 956 , was 1246 prior - please allow new dosing for Hizentra 10 grams sub-q once every 7 days (currently 10g every 10 days) Plan: Instructions given to patient/family: ---> Continue Hizentra 10 grams per dose --- we'll aim for every 7 day again -- continue Benadryl / diphenhydramine 25mg and zyrtec/cetirizine 10mg about 30 minutes pre-infusion [ sedation risk ] EVERYDAY MEDICATIONS (more content not included)... Normal [facility] L/S Spine Min 4 Viewson 12-0 6-2023 L/S Spine Min 4 Views [facility] [address] [place], [place] [address] L/S Spine Min 4 Views MR#: [id number] Acct: [id number] Name: RODRICK RIVERA Rep #: [id number] : 1960 F 64 From: Octavio storey MD PCP: Dr. Michel Ochoa MD Status: REG CLI Study: L/S Spine Min 4 Views Date of Exam: 05/22/24 Exam# [id number] Ordering Dr: Michel Ochoa MD [id number] STUDY: X-RAY - LUMBAR SPINE REASON FOR EXAM: Female, 64 years old. Back pain following a twisting injury. TECHNIQUE: 5 view(s) of the lumbar spine were obtained including oblique views. COMPARISON: None FINDINGS: Normal lumbar lordosis. There is no substantial scoliosis. There is a normal alignment of the vertebrae. Displaced narrowing and spondylosis at the L2-L3 level. The soft tissue structures are unremarkable. RAD/L/S Spine Min 4 Views IMPRESSION: Degenerative changes of the spine, as detailed above. Electronically Signed: Octavio Worley MD at 14:34 EST Reading Location ID and State: [facility] / [place] , Service support , CC: Dr. Michel Ochoa MD Piling Setter: Signed Normal [facility] SCRN MAMM (CAD)W/ARNEL BILATo n 05-20-2024 SCRN MAMM (CAD)W/ARNEL BILAT [facility] [address] [place] [id number] SCRN MAMM (CAD)W/ARNEL BILAT MR#: [id number] Acct: [id number] Name: RODRICK RIVERA Rep #: [id number] : 1960 F 64 From: Octavio storey MD PCP: Dr. Michel Ochoa MD Status: [facility] Study: SCRN MAMM (CAD)W/ARNEL BILAT Date of Exam: 10/08 Exam# [id number] Ordering Dr: Michel Ochoa MD [id number] MAMMOGRAPHY - BILATERAL SCREENING REASON FOR EXAM: Female, 64 years old. Routine annual screening examination. PERTINENT HISTORY: Non-contributory. Prior bilateral excisional breast biopsies. TECHNIQUE: Digital bilateral breast arnel (3D mammographic acquisition) in the CC and MLO projections. 2-D mediolateral oblique (MLO) and craniocaudad (CC) views of both breasts were obtained. CAD: Full Field Digital Mammography with Computer Added Detection was performed. COMPARISON: Comparison is made with prior study dated July 19, 2022 and October 07, 2020. FINDINGS: Breast Composition: The breasts are heterogeneously dense, which may obscure small masses. There are no dominant masses or suspicious calcifications. Stable small benign appearing bilateral axillary lymph nodes. A tissue clip marker is once again seen in the anterior inferior retroareolar region of the left breast. No other significant abnormalities are identified. There has been no significant change since the prior study. BI/SCRN MAMM (CAD)W/ARNEL BILAT IMPRESSION: Stable bilateral screening mammogram. Yearly follow-up mammogram recommended. (A) ASSESSMENT CATEGORY: BIRADS Category 2: Benign. A letter regarding these results will be sent to the patient by the facility within 30 days. Approximately 10% of breast cancers are not detected by mammography. A normal mammogram should not delay biopsy of a clinically suspicious abnormality. [id number] Electronically Signed: Octavio Worley MD at 13:06 EST Reading Location ID and State: [address] [place] [address] , Service support , CC: Dr. Michel Ochoa MD Piling Setter: Signed Normal [facility] Immunoglobulin Sukhdev 4 IMMUNOGLOB G QN 957 mg/dL Normal 586-1602 [facility] Comment on above: Result Comment: Perf ormed at: CB - [facility] [address] [id number] [employer] Elint Operator: Jeff Araujo PhD, Phone: [phone] Performed By: #### L 0022.1300 #### [facility] [address] [place], [address] Hips B/L min 2 views w/ Pelv lane 04-30-2024 Hips B/L min 2 views w/ Pelvis [facility] [address] [place] [address] Hips B/L min 2 views w/ Pelvis MR#: [id number] Acct: [id number] Name: RODRICK RIVERA Rep #: [id number] : 1960 F 64 From: Macario Davila MD PCP: Dr. Michel Ochoa MD Status: REG CLI Study: Hips B/L min 2 views w/ Pelvis Date of Exam: 06/30/23 Exam# [id number] Ordering Dr: Michel Ochoa MD [id number] INDICATION: RIGHT HIP PAIN EXAMINATION/TECHNIQUE: X-RAY - XR Hips Bilateral with Pelvis when performed; Min 5 Views COMPARISON: No relevant prior comparison study available. FINDINGS: PELVIC BONES: No displaced fracture, destructive or sclerotic lesions. Note that overlapping bowel shadows may however obscure fine detail. Sacroiliac joints are unremarkable. No widening of the pubic symphysis. HIPS: There is a 5 mm well corticated ossified structure lateral to the right superior acetabulum, which could represent an os acetabulum. The left hip is unremarkable. No displaced fracture. SOFT TISSUES: No soft tissue swelling or gas. RAD/Hips B/L min 2 views w/ Pelvis IMPRESSION: 5 mm well corticated ossified structure lateral to the right superior acetabulum, which could represent an os acetabulum. No evidence of displaced pelvic or hip fracture. Electronically Signed: Macario Davila MD at 14:50 EST Reading Location ID and State: [facility] / [place] , Service support , CC: Dr. Michel Ochoa MD Piling Setter: Signed Normal [facility] Knee 4 or More Viewson 04-30 Knee 4 or More Views [facility] [address] [place] [address] Knee 4 or More Views MR#: [id number] Acct: [id number] Name: RODRICK RIVERA Rep #: [id number] : 1960 F 64 From: Macario Davila MD PCP: Dr. Michel Ochoa MD Status: REG CLI Study: Knee 4 or More Views Date of Exam: 04/30/24 Exam# [id number] Ordering Dr: Michel Ochoa MD [id number] STUDY: X-RAY - RIGHT KNEE REASON FOR EXAM: Female, 64 years old. PAIN TECHNIQUE: 4 views of the right knee. COMPARISON: None. FINDINGS: Normal visualized distal femur. Normal visualized proximal tibia and fibula. Normal proximal tibiofibular articulation. There is no demonstrated fracture. There is mild degenerative arthrosis of the medial femorotibial compartment. There is mild degenerative arthrosis of the lateral femorotibial compartment. There is mild degenerative arthrosis of the patellofemoral articulation. There is a small joint effusion. The soft tissue structures are unremarkable. RAD/Knee 4 or More Views IMPRESSION: Mild tricompartment degenerative arthrosis. Small joint effusion. No demonstrated fracture. Electronically Signed: Macario Davila MD at 14:31 EST Reading Location ID and State: [address] [place] [address] , Service support , CC: Dr. Michel Ochoa MD Piling Setter: Signed Normal [facility] Knee 4 or More Views [facility] [address] [place] [address] Knee 4 or More Views MR#: [id number] Acct: [id number] Name: RODRICK RIVERA Rep #: [id number] : 1960 F 64 From: Macario Davila MD PCP: Dr. Michel Ochoa MD Status: REG CLI Study: Knee 4 or More Views Date of Exam: 04/30/24 Exam# [id number] Ordering Dr: Michel Ochoa MD [id number] STUDY: X-RAY - LEFT KNEE REASON FOR EXAM: Female, 64 years old. PAIN TECHNIQUE: 4 views of the left knee. COMPARISON: None. FINDINGS: Normal visualized distal femur. Normal visualized proximal tibia and fibula. Normal proximal tibiofibular articulation. There is no demonstrated fracture. There is mild degenerative arthrosis of the medial femorotibial compartment. Normal lateral femorotibial compartment. There is mild degenerative arthrosis of the patellofemoral articulation. There is a small knee joint effusion. The soft tissue structures are unremarkable. RAD/Knee 4 or More Views IMPRESSION: Mild degenerative arthrosis of the patellofemoral and medial femorotibial compartments. Small joint effusion. No demonstrated fracture. Electronically Signed: Macario Davila MD at 14:24 EST Reading Location ID and State: [address] [place] [address] , Service support , CC: Dr. Michel Ochoa MD Piling Setter: Signed Normal [facility] Comprehensive Metabolic Prof ilon 03-25-2024 Albumin [Mass/Vol] 3.8 g/dL Normal 3.2-5.0 [facility] Comment on above: Order Comment: Order Date: 03/17/24 Order Info: [id number] - CMP Order Info: [id number] - LIPID Performed By: #### L 500.4050, L500.4100 #### [facility] [address] [place], [address] Albumin/Globulin [Mass ratio] 1.1 {ratio} Normal 0.9-2.4 [facility] Comment on above: Order Comment: Order Date: 03/17/24 Order Info: [id number] - CMP Order Info: [id number] - LIPID Performed By: #### L 500.4050, L500.4100 #### [facility] [address] [place], [address] ALK P 87 U/L Normal 45-117 [facility] Comment on above: Order Comment: Order Date: 03/17/24 Order Info: [id number] - CMP Order Info: [id number] - LIPID Performed By: #### L 500.4050, L500.4100 #### [facility] [address] [place], [address] ALT [Catalytic activity/Vol] 44 U/L Normal 13-56 [facility] Comment on above: Order Comment: Order Date: 03/17/24 Order Info: [id number] - CMP Order Info: [id number] - LIPID Performed By: #### L 500.4050, L500.4100 #### [facility] [address] [place], [address] AST [Catalytic activity/Vol] 34 U/L Normal 15-37 [facility] Comment on above: Order Comment: Order Date: 03/17/24 Order Info: [id number] - CMP Order Info: [id number] - LIPID Performed By: #### L 500.4050, L500.4100 #### [facility] [address] [place], [address] Bilirubin [Mass/Vol] 0.60 mg/dL Normal 0.20-1.[address] [facility] Comment on above: Order Comment: Order Date: 03/17/24 Order Info: [id number] - CMP Order Info: [id number] - LIPID Result Comment: For patients on eltrombopag therapy, use of Dimension [place] TBIL is not recommended. Performed By: #### L 500.4050, L500.4100 #### [facility] [address] [place], [address] BUN/CRE 23.8 RATIO High 10-20 [facility] Comment on above: Order Comment: Order Date: 03/17/24 Order Info: [id number] - CMP Order Info: [id number] - LIPID Performed By: #### L 500.4050, L500.4100 #### [facility] [address] [place], [address] CA,Total 9.9 mg/dL Normal 8.5-10.1 [facility] Comment on above: Order Comment: Order Date: 03/17/24 Order Info: 0786- - CMP Order Info: [id number] - LIPID Performed By: #### L 500.4050, L500.4100 #### [facility] [address] [place], [address] Chloride [Moles/Vol] 105 mmol/L Normal 98-[address] [facility] Comment on above: Order Comment: Order Date: 03/17/24 Order Info: [id number] - CMP Order Info: [id number] - LIPID Performed By: #### L 500.4050, L500.4100 #### [facility] [address] [place], [address] CO2 [Moles/Vol] 24.0 mmol/L Normal 21.0-32.0 [facility] Comment on above: Order Comment: Order Date: 03/17/24 Order Info: 0786- - CMP Order Info: [id number] - LIPID Performed By: #### L 500.4050, L500.4100 #### [facility] [address] [place], [address] Creatinine [Mass/Vol] 0.88 mg/dL Normal 0.55-1.02 [facility] Comment on above: Order Comment: Order Date: 03/17/24 Order Info: 0786- - CMP Order Info: [id number] - LIPID Result Comment: The validity of the calculated GFR GFRAA in patients over 70 years has not been determined. Clinical correlation is essential. Performed By: #### L 500.4050, L500.4100 #### [facility] [address] [place], [address] EST GFR - AA 83 mL/min Normal >60 [facility] Comment on above: Order Comment: Order Date: 03/17/24 Order Info: 07- - CMP Order Info: [id number] - LIPID Result Comment: Afri can Portuguese GFR Calc Performed By: #### L 500.4050, L500.4100 #### [facility] [address] [place], [address] GAP 11 Normal 5-15 [facility] Comment on above: Order Comment: Order Date: 03/17/24 Order Info: [id number] - CMP Order Info: [id number] - LIPID Performed By: #### L 500.4050, L500.4100 #### [facility] [address] [place], [address] GFR/1.73 sq M.predicted among non-blacks MDRD (S/P/Bld) [Vol rate/Area] 69 mL/min/{1.73_m2} Normal >60 [facility] Comment on above: Order Comment: Order Date: 03/17/24 Order Info: 07 - CMP Order Info: [id number] - LIPID Result Comment: Non- GFR Calc Performed By: #### L 500.4050, L500.4100 #### [facility] [address] [place], [address] Globulin (S) [Mass/Vol] 3.4 g/dL Normal 2.2-4.2 [facility] Comment on above: Order Comment: Order Date: 03/17/24 Order Info: 0786- - CMP Order Info: [id number] - LIPID Performed By: #### L 500.4050, L500.4100 #### [facility] [address] [place], [address] Glucose [Mass/Vol] 115 mg/dL High 74-106 [facility] Comment on above: Order Comment: Order Date: 03/17/24 Order Info: [id number] - CMP Order Info: [id number] - LIPID Result Comment: Fast ing Glucose result from 100 to 125 mg/dL suggests IMPAIRED HOMEOSTASIS per A.D.A. criteria. Performed By: #### L 500.4050, L500.4100 #### [facility] [address] [place], [address] Potassium [Moles/Vol] 3.7 mmol/L Normal 3.5-5.1 [facility] Comment on above: Order Comment: Order Date: 03/17/24 Order Info: [id number] - CMP Order Info: [id number] - LIPID Performed By: #### L 500.4050, L500.4100 #### [facility] [address] [place], [address] Sodium [Moles/Vol] 140 mmol/L Normal 136-145 [facility] Comment on above: Order Comment: Order Date: 03/17/24 Order Info: [id number] - CMP Order Info: [id number] - LIPID Performed By: #### L 500.4050, L500.4100 #### [facility] [address] [place], [address] T PROT 7.2 g/dL Normal 6.4-8.2 [facility] Comment on above: Order Comment: Order Date: 03/17/24 Order Info: [id number] - CMP Order Info: [id number] - LIPID Performed By: #### L 500.4050, L500.4100 #### [facility] [address] [place], [address] Urea nitrogen [Mass/Vol] 21 mg/dL High 7-18 [facility] Comment on above: Order Comment: Order Date: 03/17/24 Order Info: [id number] - CMP Order Info: [id number] - LIPID Performed By: #### L 500.4050, L500.4100 #### [facility] [address] [place], [address] Lipid Profileon 03-25-2024 Cholesterol [Mass/Vol] 138 mg/dL Normal 200 [facility] Comment on above: Order Comment: Order Date: 03/17/24 Order Info: [id number] - CMP Order Info: [id number] - LIPID Result Comment: <200 mg/dL Desirable 200-240 mg/dL Borderline >240 mg/dL High Risk Performed By: #### L 500.4050, L500.4100 #### [facility] [address] [place], [address] Cholesterol in HDL [Mass/Vol] 41 mg/dL Normal [facility] Comment on above: Order Comment: Order Date: 03/17/24 Order Info: 0786- - CMP Order Info: [id number] - LIPID Result Comment: The drugs N-Acetylcysteine and Metamizole may falsely depress this assay. Reference Range HDL <40 mg/dL Low HDL Cholesterol HDL >or= 60 mg/dL High HDL Cholesterol Performed By: #### L 500.4050, L500.4100 #### [facility] [address] [place], [address] Cholesterol in LDL [Mass/Vol] 48 mg/dL Normal 0-130 [facility] Comment on above: Order Comment: Order Date: 03/17/24 Order Info: [id number] - CMP Order Info: [id number] - LIPID Performed By: #### L 500.4050, L500.4100 #### [facility] [address] [place], [address] Cholesterol in VLDL [Mass/Vol] 49 mg/dL High 5-40 [facility] Comment on above: Order Comment: Order Date: 03/17/24 Order Info: [id number] - CMP Order Info: [id number] - LIPID Performed By: #### L 500.4050, L500.4100 #### [facility] [address] [place], [address] Triglyceride [Mass/Vol] 246 mg/dL High [facility] Comment on above: Order Comment: Order Date: 03/17/24 Order Info: [id number] - CMP Order Info: [id number] - LIPID Result Comment: The drugs N-Acetylcysteine and Metamizole may falsely depress this assay. Serum Triglycerides Reference Interval Normal <150 mg/dL Borderline high 150 - 199 mg/dL High 200 - 499 mg/dL Very High > or = 500 mg/dL Performed By: #### L 500.4050, L500.4100 #### [facility] [address] [place], [address] Lipid Profileon 12-17-2023 Cholesterol [Mass/Vol] 167 mg/dL Normal 200 [facility] Comment on above: Result Comment: <200 mg/dL Desirable 200-240 mg/dL Borderline >240 mg/dL High Risk Performed By: #### L 500.4100 #### [facility] [address] [place], [address] Cholesterol in HDL [Mass/Vol] 39 mg/dL Low [facility] Comment on above: Result Comment: The drugs N-Acetylcysteine and Metamizole may falsely depress this assay. Reference Range HDL <40 mg/dL Low HDL Cholesterol HDL >or= 60 mg/dL High HDL Cholesterol Performed By: #### L 500.4100 #### [facility] [address] [place], [address] Cholesterol in LDL [Mass/Vol] 73 mg/dL Normal 0-130 [facility] Comment on above: Performed By: #### L 500.4100 #### [facility] [address] [place], [address] Cholesterol in VLDL [Mass/Vol] 55 mg/dL High 5-40 [facility] Comment on above: Performed By: #### L 500.4100 #### [facility] [address] [place], [address] Triglyceride [Mass/Vol] 275 mg/dL High [facility] Comment on above: Result Comment: The drugs N-Acetylcysteine and Metamizole may falsely depress this assay. Serum Triglycerides Reference Interval Normal <150 mg/dL Borderline high 150 - 199 mg/dL High 200 - 499 mg/dL Very High > or = 500 mg/dL Performed By: #### L 500.4100 #### [facility] [address] [place], [address] Progress Noteon 11-28-2023 [employer] Authentication Interface Message Text Subjective: Patient ID: Rodrick Rivera is a 63 y.o. female. Asthma Cough Upper Respiratory Infection Patient's medications, allergies, past medical, surgical, , social, and family histories were reviewed and updated as appropriate. This note or partial portions of this note may have been created using a copy forward or copy paste feature, but these portions have been verified and re-edited for accuracy and any portions not in need of editing or reviews are not being used to generate any component necessary for billing purposes. Elements necessary for proper CPT code selection are based only on elements of the visit that are truly unique to this visit. PAST VISIT reviewed with family/patient: Sinus - pressure, sinus drainage, fatigue, smell sense goes down, upper teeth can hurt. PND then. Typical chest - cough, productive, discolored, chest tightness and wheeze. Averages a respiratory issue about every 2 months. Antibiotic use 6-8x per year. Did get prevnar PFT from pulmonology normal Started Hizentra -- Helping significantly, no bronchitis and no pneumonia over past 4 months. This is a major improvement. Rate is down from 8-10x per year to much less. Fatigue issue much improved, and pt probably think in hindsight was depressed and this also has improved. Overall illnesses not as intense. No real GI issue. Wt steady, some loss but is trying. No bruising issues. NOW: Breo, developed sore throat after 3 uses, no rash, did stop, throat improved. Then on restart, soreness recurred. Wixela, no sore throat, but is having dysphonia, affects singing. Took 2 weeks to develop. Had no issues with symbicort. Albuterol use might be weekly, usually relates to cough . Some reccent increase in cough production. No wheeze, no SOB. No fever, does not feel ill Nose generally good. Sinusitis x 2 Aug/ augmentin and doxy bronchitis, x1 in . No abx. Prior to SQIG, was abx 4 to 6x per year. Did have a no abx 2019. This year a few more 2021. Wt steady, good appetite, no fever. SQIG 10 grams 1x per week, Hizentra. Injection site no real discomfort. Does pre-med with benadryl&zyrtec&tylenol, this helps the whole process, overall tolerable Helping, infection rate down overall. Osteopenia, observation currently, on vit D, difficulty in tolerating Ca++ PMHx: Gerd, chol/TG, depression, MVP, noDM (maybe pre), noHTN Essentially Tremor (propanolol) PSHx: SUDARSHAN, back L2-L5, breast abscess, tonsilectomy FMHx: Maybe asthma dad Pets/Soc: Dogs, non smoker, TCU 7100 Review of Systems See HPI Review of Systems: Constitution: Negative. Respiratory: Negative. Cardiovascular: Negative. HENT: Negative. Musculoskeletal: Negative. Gastrointestinal: Negative. Neurological: Negative for light-headedness. Skin: Negative Vitals: 11/28/23 1115 BP: 126/77 Pulse: 55 Objective: Physical Exam Constitutional: General: She is not in acute distress. HENT: Ears: Right Ear: Tympanic membrane normal. Left Ear: Tympanic membrane normal. Nose: Nasal mucosa: Pale mucosa Eyes: Conjunctiva/sclera: Conjunctivae normal. Cardiovascular: Rate and Rhythm: Normal rate and regular rhythm. Heart sounds: No murmur heard. Pulmonary: Breath sounds: Normal breath sounds. Abdominal: Palpations: Abdomen is soft. There is no hepatosplenomegaly. Tenderness: There is no abdominal tenderness. Lymphadenopathy: No other adenopathy present. Skin: Findings: No rash. Assessment: 1. Hypogammaglobulinemia 2. Moderate persistent asthma without complication 3. Allergic reaction, subsequent encounter 4. Chronic sinusitis, unspecified location 5. Hypogammaglobulinemia - good result from recent dose increase in Hizentra, less bronchitis type theme LOS - Visit addressed 3 active medical problem(s) being of moderate complexity. Good discussion with patient/family on medical diagnoses, current/future treatment plans taking conditions' risk into account. Plan: Instructions given to patient/family: EVERYDAY MEDICATIONS, REGULAR USE: 1. Wixela Inhub (fluticasone/salmeterol) 250/50 --- 1 puff taken 1 to 2x per day everyday, mouth rinse after use -- OR Symbicort 160/4.5 [budesonide/formoterol] --- 2 puffs 2 x per day everyday, mouth rinse after use 2. Omeprazole / prilosec 20mg - 1 pill 1x per day everyday NEEDED MEDICATIONS / OPTIONAL: 3. Claritin / loratadine 10mg OTC -- 1 pill once a day as needed NEEDED MEDICATIONS: 4. Albuterol/Proair/Ventoli n - 2 puffs upto 4x per day only as needed for rescue use [ for increased coughing, wheezing, shortness of breath ] 5. atrovent / ipratroprium - 1 spray each nostril 2x per day, may use daily or as needed 6. OTC Simply Saline Arm[employer]mer --- 4 to 6 sprays each nostril, 2 x per day, as needed or while ill 7. Continue Hizentra 10 grams once a week (may go to every 10 days, total 3x per month - let me know h (more content not included)... Normal [facility] COMPLETE BLOOD COUNT WITH DI FFERENTIALon 11-15-2023 Basophils (Bld) [#/Vol] 0.05 10*3/uL Normal 0.02-0.06 [facility] Comment on above: Order Comment: Relea se to patient->Automatic Performed By: #### 1 001 #### CLARIBEL Payan ([id number]) [employer]) [address] Basophils/100 WBC (Bld) 0.8 % Normal 0.3-0.9 [facility] Comment on above: Order Comment: Relea se to patient->Automatic Performed By: #### 1 001 #### CLARIBEL Payan ([id number]) [employer] ([employer]) [address] Eosinophils (Bld) [#/Vol] 0.26 10*3/uL Normal 0.04-0.27 [facility] Comment on above: Order Comment: Relea se to patient->Automatic Performed By: #### 1 001 #### CLARIBEL BACCON W ([id number]) [facility] ([employer]) [address] Eosinophils/100 WBC (Bld) 4.3 % High 0.6-3.8 [facility] Comment on above: Order Comment: Relea se to patient->Automatic Performed By: #### 1 001 #### CLARIBEL BACCON W ([id number]) [facility] ([employer]) [address] Erythrocyte distribution width (RBC) [Ratio] 13.1 % Normal 11.9-14.8 [facility] Comment on above: Order Comment: Relea se to patient->Automatic Performed By: #### 1 001 #### CLARIBEL BACCON W ([id number]) [facility] ([employer]) [address] Hematocrit (Bld) [Volume fraction] 41.7 % Normal 35.5-44.6 [facility] Comment on above: Order Comment: Relea se to patient->Automatic Performed By: #### 1 001 #### CLARIBEL BACCON W ([id number]) [facility] ([employer]) [address] Hemoglobin (Bld) [Mass/Vol] 14.0 g/dL Normal 11.4-14.8 [facility] Comment on above: Order Comment: Relea se to patient->Automatic Performed By: #### 1 001 #### CLARIBEL BACCON W ([id number]) [facility] ([employer]) [address] Immature granulocytes/100 WBC (Bld) 0.5 % Normal 0.2-0.5 [facility] Comment on above: Order Comment: Relea se to patient->Automatic Result Comment: Kady ture Granulocyte Percent includes promyelocytes, myelocytes,and metamyelocytes. IG% > 1.0 indicates a left shift is present. With automated differentials, bands are included in the neutrophil count and not in the Immature Granulocyte Percent. Performed By: #### 1 001 #### CLARIBEL SMALLS W ([id number]) [facility] ([employer]) [address] Lymphocytes (Bld) [#/Vol] 2.14 10*3/uL Normal 1.51-2.99 [facility] Comment on above: Order Comment: Relea se to patient->Automatic Performed By: #### 1 001 #### CLARIBEL BACCON W ([id number]) [facility] ([employer]) [address] Lymphocytes/100 WBC (Bld) 35.5 % Normal 21.8-42.1 [facility] Comment on above: Order Comment: Relea se to patient->Automatic Performed By: #### 1 001 #### CLARIBEL BACCON W ([id number]) [facility] ([employer]) [address] MCH (RBC) [Entitic mass] 30.0 pg Normal 25.7-31.2 [facility] Comment on above: Order Comment: Relea se to patient->Automatic Performed By: #### 1 001 #### CLARIBEL BACCON W ([id number]) [facility] ([employer]) [address] MCHC 33.6 % Normal 31.3-34.0 [facility] Comment on above: Order Comment: Relea se to patient->Automatic Performed By: #### 1 001 #### CLARIBEL BACCON W ([id number]) [facility] ([employer]) [address] MCV (RBC) [Entitic vol] 89.3 fL Normal 80.7-93.7 [facility] Comment on above: Order Comment: Relea se to patient->Automatic Performed By: #### 1 001 #### CLARIBEL BACCON W ([id number]) [facility] ([employer]) [address] Monocytes (Bld) [#/Vol] 0.42 10*3/uL Normal 0.36-0.77 [facility] Comment on above: Order Comment: Relea se to patient->Automatic Performed By: #### 1 001 #### CLARIBEL SMALLS W ([id number]) [facility] ([employer]) [address] Monocytes/100 WBC (Bld) 7.0 % Normal 5.6-10.2 [facility] Comment on above: Order Comment: Relea se to patient->Automatic Performed By: #### 1 001 #### CLARIBEL BACCON W ([id number]) [facility] ([employer]) [address] Neutrophils (Bld) [#/Vol] 3.13 10*3/uL Normal 2.43-6.42 [facility] Comment on above: Order Comment: Relea se to patient->Automatic Performed By: #### 1 001 #### CLARIBEL SMALLS W ([id number]) [facility] ([employer]) [address] Neutrophils/100 WBC (Bld) 51.9 % Normal 46.0-68.6 [facility] Comment on above: Order Comment: Relea se to patient->Automatic Performed By: #### 1 001 #### CLARIBEL SMALLS W ([id number]) [facility] ([employer]) [address] Nucleated RBC/100 WBC (Bld) [Ratio] 0.0 % Normal 0.0-0.0 [facility] Comment on above: Order Comment: Relea se to patient->Automatic Performed By: #### 1 001 #### CLARIBEL MCLEANCON W ([id number]) [facility] ([employer]) [address] Platelet mean volume (Bld) [Entitic vol] 9.1 fL Low 9.6-11.9 [facility] Comment on above: Order Comment: Relea se to patient->Automatic Performed By: #### 1 001 #### CLARIBEL BACCON W ([id number]) [facility] ([facility]) [address] Platelets (Bld) [#/Vol] 327 10*3/uL Normal 150-400 [facility] Comment on above: Order Comment: Relea se to patient->Automatic Performed By: #### 1 001 #### CLARIBEL SMALLS W ([id number]) [facility] ([employer]) [address] RBC 4.67 10E12/L Normal 4.03-4.91 [facility] Comment on above: Order Comment: Relea se to patient->Automatic Performed By: #### 1 001 #### CLARIBEL SMALLS W ([id number]) [facility] ([employer]) [address] WBC (Bld) [#/Vol] 6.0 10*3/uL Normal 4.9-10.0 [facility] Comment on above: Order Comment: Relea se to patient->Automatic Performed By: #### 1 001 #### CLARIBEL SMALLS W ([id number]) [facility] ([employer]) [address] COMPREHENSIVE METABOLIC PANE Santiago 11-15-2023 Albumin [Mass/Vol] 4.8 g/dL Normal 3.4-4.8 [facility] Comment on above: Order Comment: Relea se to patient->Automatic Performed By: #### 3 834 #### CLARIBEL SMALLS W ([id number]) [facility] ([employer] [address] [place] ALP [Catalytic activity/Vol] 97 U/L Normal 35-104 [facility] Comment on above: Order Comment: Relea se to patient->Automatic Performed By: #### 3 834 #### CLARIBEL SMALLS W ([id number]) [facility] ([employer]) [address] ALT [Catalytic activity/Vol] 26 U/L Normal <=34 [facility] Comment on above: Order Comment: Relea se to patient->Automatic Performed By: #### 3 834 #### CLARIBEL BACCON W ([id number]) [facility] ([employer]) [address] AST [Catalytic activity/Vol] 32 U/L High <=31 [facility] Comment on above: Order Comment: Relea se to patient->Automatic Performed By: #### 3 834 #### CLARIBEL SMALLS W ([id number]) [facility] ([facility]) [place] [facility] [place] [address] [place] BILI,TOTAL 0.4 MG/DL Normal <=1.0 [facility] Comment on above: Order Comment: Relea se to patient->Automatic Performed By: #### 3 834 #### CLARIBEL BACJULIANE W ([id number]) [facility] ([facility]) [place] [facility] [place] [address] [place] Calcium [Mass/Vol] 10.5 mg/dL Normal 7.6-11.0 [facility] Comment on above: Order Comment: Relea se to patient->Automatic Performed By: #### 3 834 #### CLARIBEL BACJULIANE W ([id number]) [facility] ([employer] [address] [place] Chloride [Moles/Vol] 100 mmol/L Normal 96-108 [facility] Comment on above: Order Comment: Relea se to patient->Automatic Performed By: #### 3 834 #### CLARIBEL BACJULIANE W ([id number]) [facility] ([place]) [place] [address] [place] CO2 [Moles/Vol] 25.1 mmol/L Normal 22.0-29.0 [facility] Comment on above: Order Comment: Relea se to patient->Automatic Performed By: #### 3 834 #### CLARIBEL BACJULIANE W ([id number]) [facility] ([employer]) [place] [address] [place] Creatinine [Mass/Vol] 0.75 mg/dL Normal 0.50-1.00 [facility] Comment on above: Order Comment: Relea se to patient->Automatic Performed By: #### 3 834 #### CLARIBEL BACCON W ([id number]) [facility] ([place]) [place] [address] [place] eGFR 90 mL/min/1.73m*2 Normal >=60 [facility] Comment on above: Order Comment: Relea se to patient->Automatic Performed By: #### 3 834 #### CLARIBEL BACCON W ([id number]) [facility] ([employer]) [address] Glucose [Mass/Vol] 117 mg/dL High 70-99 [facility] Comment on above: Order Comment: Relea se to patient->Automatic Result Comment: Janene ruiz for Diagnosis of Diabetes: Fasting Specimen (no caloric intake for at least 8 hours): <100 mg/dL Normal 100-125 mg/dL Increased risk for Diabetes >125 mg/dL Diagnostic for Diabetes Random Glucose (any time of day without regard to last meal): > or = 200 mg/dL plus Classic Symptoms of Diabetes Performed By: #### 3 834 #### CLARIBEL SMALLS W ([id number]) [facility] ([employer]) [address] Potassium [Moles/Vol] 4.0 mmol/L Normal 3.3-5.1 [facility] Comment on above: Order Comment: Relea se to patient->Automatic Performed By: #### 3 834 #### CLARIBEL BACJULIANE W ([id number]) [facility] ([employer]) [address] Protein [Mass/Vol] 7.8 g/dL Normal 5.9-8.4 [facility] Comment on above: Order Comment: Relea se to patient->Automatic Performed By: #### 3 834 #### CLARIBEL BACCON W ([id number]) [facility] ([employer]) [address] Sodium [Moles/Vol] 139 mmol/L Normal 133-145 [facility] Comment on above: Order Comment: Relea se to patient->Automatic Performed By: #### 3 834 #### CLARIBEL BACCON W ([id number]) [facility] ([employer] [address] [place] Urea nitrogen [Mass/Vol] 21 mg/dL High 4-19 [facility] Comment on above: Order Comment: Relea se to patient->Automatic Performed By: #### 3 834 #### CLARIBEL BACCON W ([id number]) [facility] ([employer]) [place] [address] [place] HEMOGLOBIN A1Con 11-15-2023 HbA1c (Bld) [Mass fraction] 6.0 % High <=5.6 [facility] Comment on above: Order Comment: Relea se to patient->Automatic Result Comment: Refe rence Interval: <5.7% 5.7-6.4% Prediabetes > or = 6.5% Diabetes Targets for diabetes management: Type I <7.5% Type II <7.0% Performed By: #### 2 557 #### CLARIBEL Payan ([id number]) [facility] [employer] ([employer]) [address] IMMUNOGLOBULINS (IGG, IGA, I GM)on 11-15-2023 Immunoglobulin A 21 MG/DL Low 59-337 [facility] Comment on above: Order Comment: Relea se to patient->Automatic Result Comment: This is an appended report. ?These results have been appended to a previously preliminary verified report. Performed By: #### 2 060 #### CLARIBEL Payan ([id number]) [employer] ([employer]) [address] Immunoglobulin G 1187 MG/DL Normal 578-1228 [facility] Comment on above: Order Comment: Relea se to patient->Automatic Performed By: #### 2 060 #### CLARIBEL Payan ([id number]) [facility] [employer] ([employer]) [address] Immunoglobulin M 69 MG/DL Normal 23-166 [facility] Comment on above: Order Comment: Relea se to patient->Automatic Result Comment: This is an appended report. ?These results have been appended to a previously preliminary verified report. Performed By: #### 2 060 #### CLARIBEL [email or web address] ([id number]) [employer] ([employer]) [address] LIPID PANELon 11-15-2023 Cholesterol [Mass/Vol] 136 mg/dL Normal <=199 [facility] Comment on above: Order Comment: Relea se to patient->Automatic Result Comment: Acce ptable (mg/dL): <200 Borderline-High (mg/dL): 200-239 High (mg/dL): > or = 240 Recommendations of the NCEP Adult Treatment Panel for the risk cut-off thresholds for the [place] Population. Performed By: #### 2 070 #### CLARIBEL Payan ([id number]) [employer] ([employer]) [address] Cholesterol in LDL [Mass/Vol] 62 mg/dL Normal <=129 [facility] Comment on above: Order Comment: Relea se to patient->Automatic Performed By: #### 2 070 #### CLARIBEL Payan ([id number]) [employer] [facility] ([employer]) [address] HDL Chol 43 MG/DL Normal [facility] Comment on above: Order Comment: Relea se to patient->Automatic Result Comment: Low (mg/dL): <50 Borderline-Low (mg/dL): 50-60 Acceptable (mg/dL): >60 Performed By: #### 2 070 #### CLARIBEL Payan ([id number]) [employer] [facility] ([employer]) [address] Non-HDL Cholesterol 93 MG/DL Normal <=129 [facility] Comment on above: Order Comment: Relea se to patient->Automatic Performed By: #### 2 070 #### CLARIBEL Payan ([id number]) [employer] [facility] ([employer]) [address] Triglyceride [Mass/Vol] 157 mg/dL High <=149 [facility] Comment on above: Order Comment: Relea se to patient->Automatic Result Comment: Acce ptable (mg/dL): <150 Borderline-High (mg/dL): 150-199 High (mg/dL): > or = 200 Performed By: #### 2 070 #### CLARIBEL Payan ([id number]) [facility] ([employer]) [address] Basophil percentageOrdered B y: Michel Ochoa on 09-13-2023 Chloride [Moles/Vol] 102 mmol/L 98-[address] [facility] Cholesterol [Mass/Vol] 210 mg/dL <200 [facility] Comment on above: <200 mg/dL Desirable 200-240 mg/dL Borderline >240 mg/dL High Risk Glucose [Mass/Vol] 114 mg/dL 74-106 [facility] Comment on above: Fasting Glucose resu lt from 100 to 125 mg/dL suggests IMPAIRED HOMEOSTASIS per A.D.A. criteria. Potassium [Moles/Vol] 3.9 mmol/L 3.5-5.1 [facility] Sodium [Moles/Vol] 135 mmol/L 136-145 [facility] Triglyceride [Mass/Vol] 287 mg/dL <199 [facility] Comment on above: The drugs N-Acetylcy steine and Metamizole may falsely depress this assay.Serum Triglycerides Reference Interval Normal <150 mg/dL Borderline high 150 - 199 mg/dL High 200 - 499 mg/dL Very High > or = 500 mg/dL Laboratory - Chemistry and C hemistry - challengeOrdered By: Michel Ochoa on 09-13-2023 Cholesterol in HDL [Mass/Vol] 47 mg/dL >40 [facility] Comment on above: The drugs N-Acetylcy steine and Metamizole may falsely depress this assay. Reference Range HDL <40 mg/dL Low HDL Cholesterol HDL >or= 60 mg/dL High HDL Cholesterol Cholesterol in LDL [Mass/Vol] 106 mg/dL 0-130 [facility] CO2 [Moles/Vol] 26.0 mmol/L 21.0-32.0 [facility] Urea nitrogen/Creatinine [Mass ratio] 28.0 mg/mg 10-20 [facility] No Panel InformationOrdered By: Michel Ochoa on 09-13-2023 Estimated GFR (MDRD) Amer 67 mL/min >60 [facility] Comment on above: GFR Calc Estimated GFR (MDRD) Non-Af Amer 55 mL/min >60 [facility] Comment on above: Non- GFR Calc VLDL Cholesterol 57 mg/dL 5-40 [facility] Serum or plasma calcium melvi urement (mass/volume)Ordered By: Michel Ochoa on 09-13-2023 Calcium [Mass/Vol] 9.8 mg/dL 8.5-10.1 [facility] Serum or plasma creatinine m easurement (mass/volume)Ordered By: Michel Ochoa on 09-13-2023 Creatinine [Mass/Vol] 1.07 mg/dL 0.55-1.02 [facility] Comment on above: The validity of the calculated GFR & GFRAA in patients over 70 years has not been determined. Clinical correlation is essential. Serum or plasma urea nitroge n measurement (mass/volume)Ordered By: Michel Ochoa on 09-13-2023 Urea nitrogen [Mass/Vol] 30 mg/dL 7-18 [facility] Thin prep Papanicolaou smear with manual screeningOrdered By: Michel Ochoa on 09-13-2023 Thin prep Papanicolaou smear with manual screening 7 -15 [facility] Whole blood hemoglobin A1c/t otal hemoglobin ratio (mass fraction)Ordered By: Michel Ochoa on 09-13-2023 HbA1c (Bld) [Mass fraction] 5.7 % 3.8-5.6 [facility] Comment on above: Normal < 5.7 % Predi abetic 5.7 - 6.4 % Diabetic >or= 6.5 % Please note range changes. Complete Blood Count with Di fferentialon 05-01-2023 Basophils/100 WBC (Bld) 0.80 % 0.00 - 1.00 % [facility] [facility]ated [facility] Eosinophils/100 WBC (Bld) 3.20 % High 0.00 - 3.00 % [facility] Erythrocyte distribution width (RBC) [Ratio] 13.0 % 0.0 - 14.4 % [facility] Hematocrit (Bld) [Volume fraction] 44.2 % High 36.0 - 44.0 % [facility] Hemoglobin (Bld) [Mass/Vol] 14.6 g/dL 12.0 - 15.0 g/dl [facility] Immature granulocytes/100 WBC (Bld) 0.20 % [facility] Comment on above: Immature Granulocyte Percent includes promyelocytes, myelocytes, and metamyelocytes. IG% > 1.0 indicates a left shift is present. With automated differentials, bands are included in the neutrophil count and not in the Immature Granulocyte Percent. Interpretation and review of laboratory results Abnormal [facility] Lymphocytes/100 WBC (Bld) 36.0 % 24.0 - 44.0 % [facility] MCH (RBC) [Entitic mass] 30.0 pg 26.0 - 34.0 pg [facility] MCHC 33.0 % 31.0 - 37.0 % [facility] MCV (RBC) [Entitic vol] 90.8 fL 80.0 - 100.0 fl [facility] Monocytes/100 WBC (Bld) 7.70 % High 3.00 - 6.00 % [facility] Neutrophils (Bld) [#/Vol] 2.8 10*3/uL [facility] Neutrophils/100 WBC (Bld) 52.1 % 35.0 - 66.0 % [facility] Nucleated RBC/100 WBC (Bld) [Ratio] 0.0 % -1.0 - 0.0 % [facility] Platelet mean volume (Bld) [Entitic vol] 9.1 fL [facility] Comment on above: MPV is platelet range and age dependent Platelets (Bld) [#/Vol] 292 10*3/uL [facility] RBC (Bld) [#/Vol] 4.87 10*6/uL [facility] WBC (Bld) [#/Vol] 5.3 10*3/uL [facility] Release to patient->Automatic [facility] LAB [facility] Comprehensive Metabolic Pane santiago 05-01-2023 Albumin [Mass/Vol] 4.4 g/dL 3.4 - 4.8 g/dL [facility] ALP [Catalytic activity/Vol] 95 U/L 35 - 104 U/L [facility] ALT [Catalytic activity/Vol] 30 U/L 0 - 34 U/L [facility] AST [Catalytic activity/Vol] 47 U/L High 0 - 31 U/L [facility] Comment on above: Hemolysis detected. Results may be falsely elevated. Interpret results with caution. Bilirubin [Mass/Vol] 0.4 mg/dL [facility] Calcium [Mass/Vol] 10.1 mg/dL 7.6 - 11. 0 mg/dL [facility] Chloride [Moles/Vol] 101 mmol/L 96 - 10 8 mmol/L [facility] CO2 [Moles/Vol] 26.1 mmol/L 22.0 - 29.0 mmol/L [facility] Creatinine [Mass/Vol] 0.85 mg/dL 0.50 - 1.00 mg/dL [facility] Glucose [Mass/Vol] 111 mg/dL High 70 - 99 mg/dL [facility] Comment on above: Criteria for Diagnos is of Diabetes: Fasting Specimen (no caloric intake for at least 8 hours): <100 mg/dL Normal 100-125 mg/dL Increased risk for Diabetes >125 mg/dL Diagnostic for Diabetes Random Glucose (any time of day without regard to last meal): > or = 200 mg/dL plus Classic Symptoms of Diabetes Potassium [Moles/Vol] 4.5 mmol/L 3.3 - 5.1 mmol/L [facility] Comment on above: Hemolysis detected. Results may be falsely elevated. Interpret results with caution. Protein [Mass/Vol] 7.7 g/dL 5.9 - 8.4 g/dL [facility] Sodium [Moles/Vol] 138 mmol/L 133 - 145 mmol/L [facility] Urea nitrogen [Mass/Vol] 22 mg/dL High 4 - 19 mg/dL [facility] Hemoglobin A1con 05-01-2023 HbA1c Elph (Bld) [Mass fraction] 6.0 % High 0.0 - 5.6 % [facility] Comment on above: Reference Interval: <5.7% 5.7-6.4% Prediabetes > or = 6.5% Diabetes Targets for diabetes management: Type I <7.5% Type II <7.0% Immunoglobulins (IgG, IgA, I gM)on 05-01-2023 Immunoglobulin A 21 mg/dL Low 59 - 337 mg/dL [facility] Immunoglobulin G 1218 mg/dL 578 - 1228 mg/dL [facility] Immunoglobulin M 64 mg/dL 23 - 166 mg/dL [facility] Interpretation and review of laboratory results Abnormal [facility] Release to patient->Automatic [facility] LAB [facility] Lipid panelon 05-01-2023 Cholesterol [Mass/Vol] 174 mg/dL 0 - 1 99 mg/dL [facility] Comment on above: Acceptable (mg/dL): <200 Borderline-High (mg/dL): 200-239 High (mg/dL): > or = 240 Recommendations of the NCEP Adult Treatment Panel for the risk cut-off thresholds for the [place] Population. Cholesterol in HDL [Mass/Vol] 43 mg/dL [facility] Comment on above: Low (mg/dL): <50 Borderline-Low (mg/dL): 50-60 Acceptable (mg/dL): >60 Cholesterol in LDL [Mass/Vol] 92 mg/dL 0 - 129 mg/dL [facility] Non-HDL Cholesterol 132 mg/dL High 0 - 129 mg/dL [facility] Triglyceride [Mass/Vol] 200 mg/dL High 0 - 149 mg/dL [facility] No Panel Informationon 05-01 Interpretation and review of laboratory results Abnormal [facility] Release to patient->Automatic [facility] LAB [facility] Absolute lymphocyte countOrd ered By: Cassandra Fernandez on 04-20-2023 Lymphocytes Auto (Unsp spec) [#/Vol] 2.17 10*3/uL 0.83-4.51 [facility] Basophil percentageOrdered B y: Cassandra Fernandez on 04-20-2023 Basophils/100 WBC (Bld) 1.0 % 0-1 [facility] Chloride [Moles/Vol] 104 mmol/L 98-[address] [facility] Eosinophils/100 WBC (Bld) 3.5 % 0-5 [facility] Glucose [Mass/Vol] 115 mg/dL 74-106 [facility] Comment on above: Fasting Glucose resu lt from 100 to 125 mg/dL suggests IMPAIRED HOMEOSTASIS per A.D.A. criteria. Neutrophils (Bld) [#/Vol] 2.8 10*3/uL 2.0-7.7 [facility] Neutrophils/100 WBC (Bld) 47.7 % 47-70 [facility] Potassium [Moles/Vol] 3.5 mmol/L 3.5-5.1 [facility] Sodium [Moles/Vol] 140 mmol/L 136-145 [facility] WBC (Bld) [#/Vol] 5.8 10*3/uL 4.4-11.0 [facility] Blood erythrocytes count (nu mber/volume)Ordered By: Cassandra Fernandez on 04-20-2023 RBC (Bld) [#/Vol] 4.64 10*6/uL 4.2-5.4 [facility] Blood hemoglobin measurement (mass/volume)Ordered By: Cassandra Fernandez on 04-20-2023 Hemoglobin (Bld) [Mass/Vol] 13.8 g/dL 12.0-15.0 [facility] Blood lymphocytes/100 leukoc ytesOrdered By: Cassandra Fernandez on 04-20-2023 Lymphocytes/100 WBC (Bld) 37.6 % 19-41 [facility] Blood monocytes/100 leukocyt esOrdered By: [place] Rebecca on 04-20-2023 Monocytes/100 WBC (Bld) 9.7 % 0-10 [facility] Blood platelet mean volumeOr dered By: Cassandra Fernandez on 04-20-2023 Platelet mean volume (Bld) [Entitic vol] 9.0 fL 6.2-12.0 [facility] Determination of erythrocyte mean corpuscular volume (MCV)Ordered By: Cassandra Fernandez on 04-20-2023 MCV (RBC) [Entitic vol] 90.3 fL 81-99 [facility] Hematocrit Auto (Bld) [Volum e fraction][facility]: [facility] on 04-20-2023 Hematocrit (Bld) [Volume fraction] 41.9 % 37-47 [facility] Laboratory - Chemistry and C hemistry - challengeOrdered By: [facility] on 04-20-2023 CO2 [Moles/Vol] 28.0 mmol/L 21.0-32.0 [facility] Urea nitrogen/Creatinine [Mass ratio] 26.1 mg/mg 10-20 [facility] Laboratory - Hematology and Cell countsOrdered By: [facility] on 04-20-2023 Erythrocyte distribution width (RBC) [Entitic vol] 42.5 fL 35.1-43.9 [facility] Erythrocyte distribution width (RBC) [Ratio] 13.0 % 11.6-14.6 [facility] Immature granulocytes/100 WBC (Bld) 0.500 % 0.0-0.9 [facility] Comment on above: IG% - Immature Granu locytes (promyelocytes, myelocytes and metamyelocytes) > 1% indicates that a LEFT SHIFT is Present. MCH (RBC) [Entitic mass] 29.7 pg 27.0-32.0 [facility] Nucleated RBC/100 WBC (Bld) [Ratio] 0 % 0-5 [facility] MCHC Auto (RBC) [Mass/Vol]Or dered By: Cassandra Fernandez on 04-20-2023 MCHC (RBC) [Mass/Vol] 32.9 g/dL 32-36 [facility] No Panel InformationOrdered By: Cassandra Fernandez on 04-20-2023 Troponin I High Sensitivity 29 pg/mL 3.0-54.0 [facility] Comment on above: Please Note: New Maria Elena t Units and Gender Specific Reference Ranges. For more information see Policy Stat Procedure [place] High Sensitivity Troponin (TNIH) and attachments. D-Dimer Quantitative (PE/DVT) 0.50 FEU/ug/m 0.27-0.49 [facility] Comment on above: D-Dimer ELEVATED (>0 .49): Additional studies and clinicalassessments are indicated to conclude diagnosis of:Deep Vein Thrombosis (DVT) or Pulmonary Embolism (PE)CRITICAL VALUE VERIFIED. CALLED TO FRANK BARNEY04/20/23 1319 Rubi Cedeño.RESULTS READ BACK BY SAME . Estimated Creatinine Clearance Calc 66.66 ml/min [facility] Estimated GFR (MDRD) Amer 88 mL/min >60 [facility] Comment on above: GFR Calc Estimated GFR (MDRD) Non-Af Amer 73 mL/min >60 [facility] Comment on above: Non- GFR Calc Platelets bldOrdered By: Salome Fernandez on 04-20-2023 Platelets (Bld) [#/Vol] 305 10*3/uL 150-450 [facility] Serum or plasma calcium melvi urement (mass/volume)Ordered By: Cassandra Fernandez on 04-20-2023 Calcium [Mass/Vol] 9.5 mg/dL 8.5-10.1 [facility] Serum or plasma creatinine m easurement (mass/volume)Ordered By: Cassandra Fernandez on 04-20-2023 Creatinine [Mass/Vol] 0.84 mg/dL 0.55-1.02 [facility] Comment on above: The validity of the calculated GFR & GFRAA in patients over 70 years has not been determined. Clinical correlation is essential. Serum or plasma urea nitroge n measurement (mass/volume)Ordered By: Cassandra Fernandez on 04-20-2023 Urea nitrogen [Mass/Vol] 22 mg/dL 7-18 [facility] Thin prep Papanicolaou smear with manual screeningOrdered By: Rem Ungnohemy on 04-20-2023 Thin prep Papanicolaou smear with manual screening 8 5-15 [facility] XR Chest PA and Lateral and AP lateral-decubituson 11-20-2022 IMPRESSION: 1. No focal airspace disease or interstitial infiltrate identified. 2. Slightly increased tortuosity of the descending thoracic aorta and slightly more advanced facet spine degenerative changes. This report has been created using voice recognition software [facility] Yifan Kapoor MD - 11/20/2022 PROCEDURE: CHEST PA(AP) AND LATERAL CLINICAL HISTORY: Protracted cough and wheeze COMPARISON: 05/15/2016 chest x-ray FINDINGS: Cardiomediastinal silhouette appearance is unchanged, not enlarged. There is slightly increased tortuosity of the descending thoracic aorta. Thoracic spine degenerative changes are noted. Multilevel anterior syndesmophytes are seen at the midthoracic spine. The lungs are aerated throughout. No focal airspace disease or interstitial infiltrate. Mild apical pleural thickening is nonspecific, unchanged. No pneumothorax or pleural effusion. IMPRESSION: 1. No focal airspace disease or interstitial infiltrate identified. 2. Slightly increased tortuosity of the descending thoracic aorta and slightly more advanced facet spine degenerative changes. This report has been created using voice recognition software [facility] Radiology Study observation (narrative) [facility] XR Chest PA and Lateral and AP lateral-decubitusOrdered By: Yifan Kapoor on 11-20-2022 [facility] Work Phone: Laboratory - Microbiology an d Antimicrobial susceptibilityon 05-19-2022 SARS-CoV-2 (COVID-19) RNA SHARON+probe Ql (Unsp spec) Detected [facility] No Panel Informationon 05-19 Influenza Types A,B Rapid (Clinic) Not detected [facility] Basophil percentageon 2021 Chloride [Moles/Vol] 103 mmol/L 98-[address] [facility] Work Phone: Cholesterol [Mass/Vol] 215 mg/dL <200 [facility] Work Phone: Comment on above: <200 mg/dL Desirable 200-240 mg/dL Borderline >240 mg/dL High Risk Glucose [Mass/Vol] 108 mg/dL 74-106 [facility] Work Phone: Comment on above: Fasting Glucose resu lt from 100 to 125 mg/dL suggests IMPAIRED HOMEOSTASIS per A.D.A. criteria. Potassium [Moles/Vol] 3.5 mmol/L 3.5-5.1 [facility] Work Phone: Sodium [Moles/Vol] 138 mmol/L 136-145 [facility] Work Phone: Triglyceride [Mass/Vol] 286 mg/dL <199 [facility] Work Phone: [phone] Comment on above: The drugs N-Acetylcy steine and Metamizole may falsely depress this assay.Serum Triglycerides Reference Interval Normal <150 mg/dL Borderline high 150 - 199 mg/dL High 200 - 499 mg/dL Very High > or = 500 mg/dL Laboratory - Chemistry and C hemistry - challengeon 12-27-2021 CO2 [Moles/Vol] 28.0 mmol/L 21.0-32.0 [facility] Work Phone: [phone] Urea nitrogen/Creatinine [Mass ratio] 24.3 mg/mg 10-20 [facility] Work Phone: No Panel Informationon 12-27 Estimated GFR (MDRD) Amer 91 mL/min >60 [facility] Work Phone: [phone] Comment on above: GFR Calc Estimated GFR (MDRD) Non-Af Amer 75 mL/min >60 [facility] Work Phone: Comment on above: Non- GFR Calc Vitamin D 25-Hydroxy 30.8 ng/mL [facility] Work Phone: [phone] Comment on above: Vitamin D 25(OH) Sta tus Range Deficiency <20 ng/mL (50nmol/L) Insufficiency 20 - 30 ng/mL (50 - 75 nmol/L) Sufficiency 30 - 100 ng/mL (75 - 250 nmol/L) Toxicity >100 ng/mL (>250 nmol/L) Serum or plasma calcium melvi urement (mass/volume)on 12-27-2021 Calcium [Mass/Vol] 9.6 mg/dL 8.5-10.1 [facility] Work Phone: [phone] Serum or plasma cholesterol in HDL measurement (mass/volume)on 12-27-2021 Cholesterol in HDL [Mass/Vol] 43 mg/dL >40 [facility] Work Phone: Comment on above: The drugs N-Acetylcy steine and Metamizole may falsely depress this assay. Reference Range HDL <40 mg/dL Low HDL Cholesterol HDL >or= 60 mg/dL High HDL Cholesterol Serum or plasma cholesterol in VLDL measurement (mass/volume)on 12-27-2021 Cholesterol in VLDL [Mass/Vol] 57 mg/dL 5-40 [facility] Work Phone: [phone] Serum or plasma creatinine m easurement (mass/volume)on 12-27-2021 Creatinine [Mass/Vol] 0.82 mg/dL 0.55-1.02 [facility] Work Phone: Comment on above: The validity of the calculated GFR & GFRAA in patients over 70 years has not been determined. Clinical correlation is essential. Serum or plasma low density lipoprotein (LDL) cholesterol measurement (mass/volume)on 12-27-2021 Cholesterol in LDL [Mass/Vol] 115 mg/dL 0-130 [facility] Work Phone: [phone] Serum or plasma urea nitroge n measurement (mass/volume)on 12-27-2021 Urea nitrogen [Mass/Vol] 20 mg/dL 7-18 [facility] Work Phone: [phone] Thin prep Papanicolaou smear with manual screeningon 12-27-2021 Thin prep Papanicolaou smear with manual screening 7 5-15 [facility] Work Phone: Complete Blood Counton 10-26 Basophils/100 WBC (Bld) 1 % 0 - 1 % [facility] Differential Complete Automated [facility] Eosinophils/100 WBC (Bld) 3.10 % High 0 - 3 % [facility] Erythrocyte distribution width (RBC) [Ratio] 12.9 % 0 - 14.4 % [facility] Hematocrit (Bld) [Volume fraction] 42.0 % 36 - 44 % [facility] Hemoglobin (Bld) [Mass/Vol] 14.0 g/dL 12 - 15 g/dl [facility] Immature granulocytes/100 WBC (Bld) 0 % [facility] Comment on above: Immature Granulocyte Percent includes promyelocytes, myelocytes, and metamyelocytes. IG% > 1.0 indicates a left shift is present. With automated differentials, bands are included in the neutrophil count and not in the Immature Granulocyte Percent. Interpretation and review of laboratory results Abnormal [facility] Lymphocytes/100 WBC (Bld) 41.9 % 24 - 44 % [facility] MCH (RBC) [Entitic mass] 29.7 pg 26 - 34 pg [facility] MCHC 33.3 % 31 - 37 % [facility] MCV (RBC) [Entitic vol] 89.2 fL 80 - 100 fl [facility] Monocytes/100 WBC (Bld) 7.50 % High 3 - 6 % [facility] Neutrophils (Bld) [#/Vol] 1.9 10*3/uL Low [facility] Neutrophils/100 WBC (Bld) 46.5 % 35 - 66 % [facility] Nucleated RBC/100 WBC (Bld) [Ratio] 0 % -1 - 0 % [facility] Platelet mean volume (Bld) [Entitic vol] 9.3 fL [facility] Comment on above: MPV is platelet range and age dependent Platelets (Bld) [#/Vol] 305 10*3/uL [facility] RBC (Bld) [#/Vol] 4.71 10*6/uL [facility] WBC (Bld) [#/Vol] 4.1 10*3/uL Low [facility] Release to patient->Automatic [facility] LAB [facility] Comprehensive Metabolic Pane santiago 10-26-2021 Albumin [Mass/Vol] 4.9 g/dL High 3.4 - 4.8 g/dL [facility] ALP [Catalytic activity/Vol] 86 U/L 35 - 104 U/L [facility] ALT [Catalytic activity/Vol] 17 U/L 0 - 34 U/L [facility] AST [Catalytic activity/Vol] 29 U/L 0 - 31 U/L [facility] Comment on above: Hemolysis detected. Results may be falsely elevated. Interpret results with caution. Bilirubin [Mass/Vol] 0.4 mg/dL [facility] Calcium [Mass/Vol] 10.1 mg/dL 7.6 - 11 mg/dL [facility] Chloride [Moles/Vol] 103 mmol/L 96 - 10 8 mmol/L [facility] CO2 [Moles/Vol] 25.6 mmol/L 22 - 29 mmol/L [facility] Creatinine [Mass/Vol] 0.81 mg/dL 0.5 - 1 mg/dL [facility] Glucose [Mass/Vol] 99 mg/dL 70 - 99 mg/dL [facility] Comment on above: Criteria for Diagnos is of Diabetes: Fasting Specimen (no caloric intake for at least 8 hours): <100 mg/dL Normal 100-125 mg/dL Increased risk for Diabetes >125 mg/dL Diagnostic for Diabetes Random Glucose (any time of day without regard to last meal): > or = 200 mg/dL plus Classic Symptoms of Diabetes Potassium [Moles/Vol] 4.3 mmol/L 3.3 - 5.1 mmol/L [facility] Comment on above: Hemolysis detected. Results may be falsely elevated. Interpret results with caution. Protein [Mass/Vol] 7.8 g/dL 5.9 - 8.4 g/dL [facility] Sodium [Moles/Vol] 139 mmol/L 133 - 145 mmol/L [facility] Urea nitrogen [Mass/Vol] 20 mg/dL High 4 - 19 mg/dL [facility] Immunoglobulins (IgG, IgA, I gM)on 10-26-2021 Immunoglobulin A 26 mg/dL Low 59 - 337 mg/dL [facility] Immunoglobulin G 1246 mg/dL High 578 - 1228 mg/dL [facility] Immunoglobulin M 76 mg/dL 23 - 166 mg/dL [facility] Interpretation and review of laboratory results Abnormal [facility] Release to patient->Automatic [facility] LAB [facility] Lipid panelon 10-26-2021 Cholesterol [Mass/Vol] 202 mg/dL High 0 - 1 99 mg/dL [facility] Comment on above: Acceptable (mg/dL): <200 Borderline-High (mg/dL): 200-239 High (mg/dL): > or = 240 Recommendations of the NCEP Adult Treatment Panel for the risk cut-off thresholds for the [place] Population. Cholesterol in HDL [Mass/Vol] 45 mg/dL [facility] Comment on above: Low (mg/dL): <50 Borderline-Low (mg/dL): 50 60 Acceptable (mg/dL): >60 Cholesterol in LDL [Mass/Vol] 108 mg/dL 0 - 129 mg/dL [facility] Non-HDL Cholesterol 157 mg/dL High 0 - 129 mg/dL [facility] Triglyceride [Mass/Vol] 244 mg/dL High 0 - 149 mg/dL [facility] Comment on above: A repeating fasting triglyceride should be measured in 2-4 weeks if a non-fasting level is >200 mg/dL. No Panel Informationon 10-26 Interpretation and review of laboratory results Abnormal [facility] Release to patient->Automatic [facility] LAB [facility] Absolute lymphocyte counton 09-06-2021 Lymphocytes Auto (Unsp spec) [#/Vol] 1.75 10*3/uL 0.83-4.51 [facility] Work Phone: Basophil percentageon 2021 Basophils/100 WBC (Bld) 0.9 % 0-1 [facility] Work Phone: Chloride [Moles/Vol] 103 mmol/L 98-[address] [facility] Work Phone: Eosinophils/100 WBC (Bld) 2.3 % 0-5 [facility] Work Phone: Glucose [Mass/Vol] 89 mg/dL 74-106 [facility] Work Phone: Neutrophils (Bld) [#/Vol] 2.0 10*3/uL 2.0-7.7 [facility] Work Phone: Neutrophils/100 WBC (Bld) 46.5 % 47-70 [facility] Work Phone: Potassium [Moles/Vol] 3.6 mmol/L 3.5-5.1 [facility] Work Phone: Sodium [Moles/Vol] 140 mmol/L 136-145 [facility] Work Phone: WBC (Bld) [#/Vol] 4.3 10*3/uL 4.4-11.0 [facility] Work Phone: Blood erythrocytes count (nu mber/volume)on 09-06-2021 RBC (Bld) [#/Vol] 4.73 10*6/uL 4.2-5.4 [facility] Work Phone: Blood hemoglobin measurement (mass/volume)on 09-06-2021 Hemoglobin (Bld) [Mass/Vol] 14.0 g/dL 12.0-15.0 [facility] Work Phone: Blood lymphocytes/100 leukoc yteson 09-06-2021 Lymphocytes/100 WBC (Bld) 40.4 % 19-41 [facility] Work Phone: Blood monocytes/100 leukocyt eson 09-06-2021 Monocytes/100 WBC (Bld) 9.7 % 0-10 [facility] Work Phone: Blood platelet mean volumeon 09-06-2021 Platelet mean volume (Bld) [Entitic vol] 9.2 fL 6.2-12.0 [facility] Work Phone: Determination of erythrocyte mean corpuscular volume (MCV)on 09-06-2021 MCV (RBC) [Entitic vol] 90.7 fL 81-99 [facility] Work Phone: [phone] Hematocrit Auto (Bld) [Volum e fraction]on 09-06-2021 Hematocrit (Bld) [Volume fraction] 42.9 % 37-47 [facility] Work Phone: [phone] Laboratory - Chemistry and C hemistry - challengeon 09-06-2021 CO2 [Moles/Vol] 30.0 mmol/L 21.0-32.0 [facility] Work Phone: [phone] Urea nitrogen/Creatinine [Mass ratio] 30.1 mg/mg 10-20 [facility] Work Phone: [phone] Laboratory - Hematology and Cell countson 09-06-2021 Erythrocyte distribution width (RBC) [Entitic vol] 43.4 fL 35.1-43.9 [facility] Work Phone: [phone] Erythrocyte distribution width (RBC) [Ratio] 12.9 % 11.6-14.6 [facility] Work Phone: [phone] Immature granulocytes/100 WBC (Bld) 0.200 % 0.0-0.9 [facility] Work Phone: [phone] Comment on above: IG% - Immature Granu locytes (promyelocytes, myelocytes and metamyelocytes) > 1% indicates that a LEFT SHIFT is Present. MCH (RBC) [Entitic mass] 29.6 pg 27.0-32.0 [facility] Work Phone: [phone] Nucleated RBC/100 WBC (Bld) [Ratio] 0 % 0-5 [facility] Work Phone: [phone] MCHC Auto (RBC) [Mass/Vol]on 09-06-2021 MCHC (RBC) [Mass/Vol] 32.6 g/dL 32-36 [facility] Work Phone: [phone] No Panel Informationon 09-06 Estimated GFR (MDRD) Amer 104 mL/min >60 [facility] Work Phone: [phone] Comment on above: GFR Calc Estimated GFR (MDRD) Non-Af Amer 86 mL/min >60 [facility] Work Phone: Comment on above: Non- GFR Calc Platelets bldon 09-06-2021 Platelets (Bld) [#/Vol] 315 10*3/uL 150-450 [facility] Work Phone: Serum or plasma calcium melvi urement (mass/volume)on 09-06-2021 Calcium [Mass/Vol] 9.7 mg/dL 8.5-10.1 oste r [facility] Work Phone: Serum or plasma creatinine m easurement (mass/volume)on 09-06-2021 Creatinine [Mass/Vol] 0.73 mg/dL 0.55-1.02 Teran ster [facility] Work Phone: Comment on above: The validity of the calculated GFR & GFRAA in patients over 70 years has not been determined. Clinical correlation is essential. Serum or plasma urea nitroge n measurement (mass/volume)on 09-06-2021 Urea nitrogen [Mass/Vol] 22 mg/dL 7-18 [facility] Work Phone: Thin prep Papanicolaou smear with manual screeningon 09-06-2021 Thin prep Papanicolaou smear with manual screening 7 5-15 [facility] Work Phone: Laboratory - Microbiology an d Antimicrobial susceptibilityon 07-04-2021 SARS-CoV-2 (COVID-19) RNA SHARON+probe Ql (Unsp spec) Not detected Not Detect [facility] Work Phone: Comment on above: Normal Reference Ran ge: Not DetectedMethod:(RT-PCR) real-time reverse transcriptase PCRLuminex SAMY Instrument*The Food and Drug Administration (FDA) has issued an Emergency Use Authorization (EAU) for the SAMY SARS-CoV-2 Assay for the rapid detection of the virus that causes COVID-19. This test has been validated, but the FDAs independent review of this validation is pending.*Negative results do not preclude infection and should not be used as the sole basis for treatment or patient management. Optimum specimen types and timing for peak viral levels during infections caused by SARS-CoV-2 have not been determined. Collection of multiple specimens from the same patient may be necessary to detect the virus. The possibility of a false negative result should be considered if the patient has clinical presentation or has had recent exposure. OPERATIVE REPORTon 7 OPERATIVE REPORT [facility] Operative ReportSURGEON: BAO HusseinRODRICK DOVE LMRN: [id number] ACCTNUM: [id number] OF SURGERY: 03/12/2017DATE OF : 1960 SEX/AGE: F/56PATIENT TYPE: [facility]: LOCATION: [id number] DATE: 03/12/2017DATE OF SURGERY: 03/12/2017SURGEON: PETRA HusseinREOPERATIVE DIAGNOSIS: Chronic tonsillitis.POSTOPERATIV E DIAGNOSIS: Chronic tonsillitis.PROCEDURE PERFORMED: Tonsillectomy.ANESTHESIA : General.INDICATION: The patient is a 56-year-old white female with a history of recurrent upper and lower respiratory tractinfections involving her tonsils.OPERATIVE NOTE: The patient was taken to the operating room, placed in supine position. General anesthesiawas begun. The right tonsil was grasped with curved Allis forceps and from the underlying soft tissuewith Bovie electrocautery. A similar procedure was then used to remove the opposite tonsil. She tolerated theprocedure well. There were no complications. She was recovered from anesthesia and taken to the recovery roomin stable condition. Signed: BRAYDEN NATION MD 05/14/2017 14:39 Chantal Nation MDOtolaryngologyJSM:modl T: 03/12/2017 13:51:38Job #: [id number] cc: Brayden Nation MD Primary Care Physician Page 1 of 1 Normal [facility] OPERATIVE REPORT PDF Normal [facility] Otheron 03-14-2017 CONVERTED CLINICAL HISTORY OPERATIVE PROCEDURE: Tonsillectomy CLINICAL INFORMATION: Chronic tonsillitis [facility] CONVERTED ELECTRONIC SIGNATURE KHUSHBOO DIAZ M.D., PATHOLOGIST (Electronic signature on file) Final Signed Out: 03/14/2017 16:54 [facility] CONVERTED FINAL DIAGNOSIS FINAL DIAGNOSIS: BILATERAL TONSILS, EXCISION - TWO TONSILS WITH REACTIVE LYMPHOID HYPERPLASIA. [facility] CONVERTED GROSS DESCRIPTION GROSS DESCRIPTION: Bilateral tonsils Received in formalin labeled bilateral tonsils are two rubbery unoriented cerebriform tonsils, which are 2.0 and 2.5 cm in greatest dimension. Each display a lobato-red soft and glistening mucosal surface. Sectioning of each reveals a noel-pink, cryptic architecture with focal areas of hemorrhage. Associate Professor Of Forestry sections are submitted to include the largest in cassette 1 and the smallest in cassette 2. No distinct masses or nodules are identified. BMP:[facility] CONVERTED ORDERING PROVIDER Ordering Provider: BRAYDEN NATION [facility] OPERATIVE NOon 03-13-2017 OPERATIVE NO HNO ID: [id number]: Brayden Spainervice: OtolaryngologyAuthor Type: PhysicianType: Operative ReportFiled: 05/09/2017 8:08 AMNote Text:Operative ReportName: Rodrick RiveraMedical Record Number: [id number]: [id number] Age: 57 year oldDate of Procedure: 03/12/2017Pre Op Dx: Chronic tonsillitisPost Op Dx: SameProcedure: TonsillectomySurgeon: Brayden Nation MDAnesthesia: GeneralIndications: The patient is an 57 year old female with a history ofrecurring upper and lower respiratory tract infections involving theirtonsils.Description of Operative Procedure: The patient was taken to theoperating room and placed in a supine position. General anesthesia wasbegun. The McIvor mouth gag was inserted into the patients oral cavityand opened. Following this, the right tonsil was grasped with a curvedAllis, and from the underlying soft tissue with Bovieelectrocautery. A similar procedure was used to remove the oppositetonsil.Specimens : Tonsils, togetherEBL: minimalComplications: noneDisposition: PACUCondition: good Normal [facility] Surgical Tissue Examon 03-12 Surgical Tissue Exam Test performed at A [address] [address]UGGY: RODRICK RIVERA [id number] REQUESTING: BRAYDEN NATION M.D.FINAL DIAGNOSIS:BILATERAL TONSILS, EXCISION - TWO TONSILS WITH REACTIVE LYMPHOIDHYPERPLASIA.OPER ATIVE PROCEDURE: TonsillectomyCLINICAL INFORMATION: Chronic tonsillitisGROSS DESCRIPTION:Bilateral tonsilsReceived in formalin labeled bilateral tonsils are two rubberyunoriented cerebriform tonsils, which are 2.0 and 2.5 cm in greatestdimension. Each display a lobato-red soft and glistening mucosalsurface. Sectioning of each reveals a noel-pink, cryptic architecturewith focal areas of hemorrhage. Associate Professor [employer] Forestry sections are submittedto include the largest in cassette 1 and the smallest in cassette 2.No distinct masses or nodules are identified. BMP:marilyn DIAZ M.D., PATHOLOGIST(Electronic signature on file)Signed out: 03/14/2017 16:54PRINTED: 03/14/2017 Page 1 of 1 Normal [facility] Comment on above: Performed By: #### S URG ####[place] [id number] Vital Signs Date Time Vital Sign Value Performing Clinician Faci lity 09-24-2024 11:30-0400 Body height 170.[address] Michel Ochoa MD Work Phone: [facility] 09-24-2024 11:30-0400 Body mass index (BMI) [Ratio] 34.9 kg/m2 Dr. Michel Ochoa MD Work Phone: [facility] 09-24-2024 11:30-0400 Body weight 101.[address] Michel Ochoa MD Work Phone: [facility] 09-24-2024 11:30-0400 Diastolic blood pressure 71 mm[Hg] Dr. Michel Ochoa MD Work Phone: [facility] 09-24-2024 11:30-0400 Heart rate 61 /min Dr. Michel Ochoa MD Work Phone: [facility] 09-24-2024 11:30-0400 Respiratory rate 16 /min Dr. Michel Ochoa MD Work Phone: [facility] 09-24-2024 11:30-0400 Systolic blood pressure 118 mm[Hg] Dr. Michel Ochoa MD Work Phone: [facility] 07-08-2023 09:31-0500 Body height 170.[address] Michel Ochoa Work Phone: [facility] 07-08-2023 09:31-0500 Body mass index (BMI) [Ratio] 34.7 kg/m2 Dr. Michel Ochoa Work Phone: [facility] 07-08-2023 09:31-0500 Body weight 100.[address] Michel Ochoa Work Phone: [facility] 07-08-2023 09:31-0500 Diastolic blood pressure 81 mm[Hg] Dr. Michel Ochoa Work Phone: [facility] 07-08-2023 09:31-0500 Heart rate 51 /min Dr. Michel Ochoa Work Phone: [facility] 07-08-2023 09:31-0500 Respiratory rate 18 /min Dr. Michel Ochoa Work Phone: [facility] 07-08-2023 09:31-0500 Systolic blood pressure 125 mm[Hg] Dr. Michel Ochoa Work Phone: [facility] 04-20-2023 15:52-0400 Diastolic blood pressure 82 mm[Hg] [facility] 04-20-2023 15:52-0400 Heart rate 53 /min [facility] 04-20-2023 15:52-0400 Respiratory rate 12 /min [facility] 04-20-2023 15:52-0400 SaO2% (BldA) [Mass fraction] 95 % [facility] 04-20-2023 15:52-0400 Systolic blood pressure 125 mm[Hg] [facility] 04-20-2023 12:02-0400 Body height 170.18 cm [facility] 04-20-2023 12:02-0400 Body mass index (BMI) [Ratio] 34.4 kg/m2 [facility] 04-20-2023 12:02-0400 Body temperature 96.2 [degF] [facility] 04-20-2023 12:02-0400 Body weight 99.79 kg [facility] 05-19-2022 11:07-0500 Body temperature 97.7 [degF] Dr. Michel Ochoa Work Phone: [facility] 05-19-2022 11:07-0500 Diastolic blood pressure 80 mm[Hg] Dr. Michel Ochoa Work Phone: [facility] 05-19-2022 11:07-0500 Heart rate 92 /min Dr. Michel Ochoa Work Phone: [facility] 05-19-2022 11:07-0500 Respiratory rate 16 /min Dr. Michel Ochoa Work Phone: [facility] 05-19-2022 11:07-0500 SaO2% (BldA) [Mass fraction] 96 % Dr. Michel Ochoa Work Phone: [facility] 05-19-2022 11:07-0500 Systolic blood pressure 142 mm[Hg] Dr. Michel Ochoa Work Phone: [facility] Encounters Encounter Date Encounter Type Care Provider Facility Start: 10-30-2024 End: 10-30-[address] Michel Ochoa MD Work Phone: [facility] Work Phone: Start: 10-30-2024 End: 10-30-[address] Michel Ochoa MD -Radiology [place] Work Phone: Start: 10-30-2024 End: 10-30-2024 ambulatory Michel Ochoa Facility:[facility] Start: 10-26-2024 Non-patient / Non-visit Yamilka Mcrae CONSUMER LOAN SPECIALIST-C -[facility] Work Phone: Start: 10-26-2024 ambulatory Michel Ochoa Facility:[facility] Start: 10-22-2024 Non-patient / Non-visit Dr. Fortunato Graham MD [facility] Work Phone: Start: 10-22-2024 Registered Referred Yamilka underwood CONSUMER LOAN SPECIALIST-C -Cat Scan [facility] Work Phone: Start: 10-22-2024 ambulatory Marvin Graham Facility:[facility] Start: 09-24-2024 End: 09-24-[address] Michel Ochoa MD Work Phone: [facility] Work Phone: Start: 09-24-2024 End: 09-24-2024 Patient encounter procedure Yamilka SAXENA -[facility] Work Phone: Start: 09-24-2024 End: 09-24-2024 ambulatory Michel Ochoa Facility:[facility] Start: 05-29-2024 End: 05-29-2024 ambulatory MICHEL OCHOA [facility] Start: 05-22-2024 End: 05-22-2024 ambulatory Michel Ochoa Facility:[facility] Start: 05-20-2024 End: 05-20-2024 ambulatory Michel Ochoa Facility:[facility] Start: 04-30-2024 End: 04-30-2024 ambulatory Michel Ochoa Facility:[facility] Start: 03-25-2024 End: 03-25-2024 ambulatory Michel Ochoa Facility:[facility] Start: 12-17-2023 End: 12-17-2023 ambulatory Michel Ochoa Facility:[facility] Start: 11-28-2023 End: 11-28-2023 ambulatory MICHEL Jain OCHOA [facility] Start: 11-15-2023 End: 11-15-2023 ambulatory [facility] Start: 09-13-2023 End: 09-13-[address] Michel Ochoa Work Phone: [facility] Work Phone: Start: 09-13-2023 End: 09-13-[address] Michel Ochoa Work Phone: [facility] Work Phone: Start: 07-15-2023 End: 07-15-[address] Michel Ochoa Work Phone: [facility] Work Phone: Start: 07-15-2023 End: 07-15-[address] Michel Ochoa Work Phone: [facility]-Pulmonary Services/Neurology Work Phone: Start: 07-15-2023 Non-patient / Non-visit Dr. Cristian Ochoa Work Phone: [facility] Work Phone: Start: 07-08-2023 End: 07-08-[address] Michel Ochoa Work Phone: [facility] Work Phone: Start: 05-31-2023 Non-patient / Non-visit Dr. Cristian Ochoa Work Phone: [facility] Start: 05-27-2023 Non-patient / Non-visit Dr. Cristian Ochoa Work Phone: [facility] Start: 05-27-2023 End: 05-27-2023 ambulatory [facility] Work Phone: Start: 05-27-2023 End: 05-27-2023 Patient encounter procedure [facility]Cardiovascu lar Services Work Phone: Start: 05-01-2023 End: 05-01-2023 Subsequent hospital visit by physician Marylou Martino MD Work Phone: [facility] Comment on above: Hypercholesterolemia ; Hypogammaglobulinemia Start: 04-20-2023 End: 04-20-2023 Emergency department patient visit [facility]-Emergency Department Work Phone: Start: 03-14-2023 End: 03-14-2023 ambulatory [facility] Work Phone: Start: 03-14-2023 End: 03-14-2023 Patient encounter procedure [facility]-Outpatient Breast Imaging Work Phone: Start: 11-20-2022 End: 11-20-2022 Subsequent hospital visit by physician Marylou Martino MD Work Phone: Radiology Comment on above: Hypogammaglobulinemi a; Chronic bronchitis, unspecified chronic bronchitis type Start: 07-19-2022 End: 07-19-[address] Michel Ochoa Work Phone: [facility] Work Phone: Start: 07-19-2022 End: 07-19-[address] Michel Ochoa Work Phone: [facility]-Outpatient Bone Densitometry Start: 05-19-2022 End: 05-19-[address] Michel Ochoa Work Phone: [facility] Start: 12-27-2021 End: 12-27-2021 Patient encounter procedure [facility] Start: 10-26-2021 End: 10-26-2021 Subsequent hospital visit by physician Marylou Martino MD Work Phone: [facility] Comment on above: Hypogammaglobulinemi a Start: 09-06-2021 End: 09-06-2021 [facility] Start: 07-04-2021 End: 07-04-2021 [facility] Start: 03-12-2017 End: 03-12-2017 Patient encounter procedure Brayden Nation Work Phone: [facility] Start: 03-12-2017 Results Only Brayden Nation Work Phone: [facility] Start: 03-12-2017 End: 03-13-2017 Ambulatory BRAYDEN NATION Facility:[facility] Procedures Date Procedure Procedure Detail Performing Clinician Start: 10-30-2024 X-ray of knee, four or more views Dr. Michel Ochoa MD Work Phone: Start: 10-22-2024 CT angiography of co ronary arteries Dr. Michel Ochoa MD Work Phone: Start: 05-27-2023 Radionuclide imaging of perfusion of myocardium under exercise stress Start: 05-01-2023 Comprehensive metabo lic panel Marylou Martino MD Work Phone: Start: 05-01-2023 Lipid panel Marylou cowan MD Work Phone: Start: 05-01-2023 COMPLETE BLOOD COUNT WITH DIFFERENTIAL Marylou Martino MD Work Phone: Start: 04-20-2023 Plain chest X-ray Start: 03-14-2023 Mammography Start: 03-14-2023 Ultrasonography of breast Start: 11-20-2022 Radiologic exam ches t 2 views Marylou Martino MD Work Phone: Start: 07-19-2022 Dual energy X-ray absorptiometry Dr. Michel Ochoa Work Phone: Start: 07-19-2022 Screening mammography Liza Ochoa Work Phone: Start: 10-26-2021 CBC W Auto Different ial panel - Blood Marylou Martino MD Work Phone: Start: 10-26-2021 Comprehensive metabo lic panel Marylou Martino MD Work Phone: Start: 10-26-2021 Lipid panel Marylou cowan MD Work Phone: Start: 03-12-2017 CONVERTED SURGICAL PATHOLOGY Brayden Nation Work Phone: Start: 09-24-2014 Mammography Brayden estrada Plan of Treatment Date Care Activity Detail Author Start: 05-23-2023 End: 05-23-2023 Patient encounter procedure Allergy - Gregory Start: 04-20-2023 [facility] Start: 04-20-2023 [facility] Start: 02-21-2022 COVID-19 (5 - Booste r for Moderna series) COVID-19 (5 - Booster for Moderna series) [facility] Start: 11-10-2021 End: 11-10-2021 Patient encounter procedure 11/10/2021 Office Visit [place] [address] Allergy - Gregory Start: 02-16-2020 Influenza vaccination INFLUENZA (#1) [facility] Start: 10-07-2015 DIABET[facility]CRE[facility] Start: 09-25-2015 Mammography MAMMOGRAM [facility] Start: 06-28-2013 LIPID SCREEN LIPID SCREEN [facility] Start: 2010 SHINGRIX VACCINE (1 of 2) PIMENTEL GRIX VACCINE (1 of 2) [facility] Start: 2010 Tuberculosis screening COLOREC CRAIG CANCER SCREENING,SEE MODIFIER [facility] Start: 09-10-1985 Urine microalbumin profile DTAP,TDAP,TD (5 - Tdap) [facility] Start: 1981 Microscopic observat ion [Identifier] in Cervix by Cyto stain Pap Smear [facility] Start: 1978 HEPATITIS C SCREENING HEPATITIS C SC REENING [facility] Start: 1978 HIV SCREENING HIV SCREENING [facility] Start: 1976 MenB (1 of 2 - MenB 2-Dose Series Bexsero) MenB (1 of 2 - MenB 2-Dose Series Bexsero) [facility] Start: 1976 MenB (1 of 2 - MenB 2-Dose Series) MenB (1 of 2 - MenB 2-Dose Series) [facility] Start: 1967 Tetanus Diphtheria a nd Pertussis Vaccines (1 - Tdap) Tetanus Diphtheria and Pertussis Vaccines (1 - Tdap) [facility] Start: 1961 MMR (1 of 1 - Standa rd series) MMR (1 of 1 - Standard series) [facility] Start: 1961 Varicella (1 of 2 - 2-dose childhood series) Varicella (1 of 2 - 2-dose childhood series) [facility] 24 Hour ECG [facility] CT angiography of coronary arteries [facility] Patient Education ED Chest Pain, Uncertain Cause [facility] Work Phone: Patient referral [facility] Work Phone: Immunizations Immunization Date Immunization Notes Care Provider Josemanuel krishnamurthy 09-11-1975 diphtheria and tetan us toxoids, adsorbed for pediatric use Brayden [facility] 09-11-1975 measles, mumps and r ubella virus vaccine [facility] 09-11-1975 trivalent poliovirus vaccine, live, oral [facility] 04-29-1970 diphtheria and tetan us toxoids, adsorbed for pediatric use [facility] 04-29-1970 trivalent poliovirus vaccine, live, oral [facility] 06-25-1965 DTP-Haemophilus infl uenzae type b conjugate vaccine [facility] 06-25-1965 vaccinia (smallpox) vaccine, diluted [facility] 06-25-1962 DTP-Haemophilus infl uenzae type b conjugate vaccine [facility] 06-25-1961 trivalent poliovirus vaccine, live, oral [facility] 06-25-1961 vaccinia (smallpox) vaccine, diluted [facility] 1960 DTP-Haemophilus infl uenzae type b conjugate vaccine [facility] Payers Date Payer Category Payer Unknown [id number] 2023 Self-pay [id number] 2014 Unknown O MMO SUPERMED [id number] 2014-Present Indemnity [id number] 2013 Unknown [id number] 2013 Unknown [employer] [facility] MMO SUPERMED PPO [id number] 2013-Present [address] [place] [address] [id number] 1960 Unknown [id number] 1960 Unknown [id number] 1960 Unknown [id number] Unknown [id number] Unknown [id number] Unknown [id number] Unknown [id number] Unknown [id number] Unknown [id number] Unknown [id number] Unknown [id number] Unknown [id number] Unknown [id number] Unknown [id number] Social History Date Type Detail Facility Start: 12-30-2014 End: 09-24-2023 Tobacco smoking status NEIS Never smoker [facility] Start: 12-30-2014 End: 12-01-2021 Tobacco use and exposure Never used [facility] Start: 12-30-2014 Alcohol intake Current non-dr policy service coordinator of alcohol (finding) [facility] Start: 1960 Sex Assigned At Not on file [facility] Start: 05-12-2015 End: 04-20-2023 Tobacco smoking status NEIS Unknown if ever smoked [facility] Start: 1960 Sex Assigned At Female [facility] Start: 02-20-2017 End: 11-20-2022 Cigarette pack-years [facility] Start: 05-23-2021 End: 11-20-2022 Alcohol intake Not Asked [facility] Start: 11-20-2022 Tobacco use panel [facility] Start: 09-28-2024 Sex Female (finding) [facility] Mental Status Date Assessment Result Facility 04-20-2023 Cognitive function Voice/Name [facility] Work Phone: Clinical Notes 11-20-2022 to 10-31-2024 Note Date & Type Note Facility 10-31-2024 Radiology Diagnostic study note [facility] Imaging Services [address] [place] [address] Knee 4 or More Views MR#: [id number] Acct: [id number] Name: RODRICK RIVERA Rep #: [id number] : 1960 F 64 From: Owen Deras MD PCP: Dr. Michel Ochoa MD Status: KLAUDIA PRAJAPATI Study:Knee 4 or More Views Date of Exam: 10/30/24 Exam# [id number] Ordering Dr: Michel Ochoa MD PROCEDURE: KNEE 4 OR MORE VIEWS 10/30/2024 REASON FOR EXAM: KNEE PAIN TECHNIQUE: 4 view(s) of the right knee COMPARISON: 04/30/2024 FINDINGS: No fracture or dislocation. Uiwxv-nz-wgpibpnr joint effusion now present. Tricompartmental mild appearing osteoarthrosis not significantly changed. Enthesophyte formation again seen at the quadriceps sideof the patella. RAD/Knee 4 or More Views IMPRESSION: Qnosf-vi-jiozvvcj joint effusion now present. Tricompartmental mild appearing osteoarthrosis not significantly changed. Reading Location: [id number] CC: Dr. Michel Ochoa MD ~ Piling Setter: Signed [facility] 09-24-2024 Evaluation note Diagnosis Onset Date Resolution Dyslipidemia chronic September 24, 2024 11:08am Hypertension chronic September 24, 2024 11:08am Palpitations chronic September 24, 2024 11:08am Chest pain resolved September 24 11:08am [facility] Work Phone: [phone]) 466-780106-06-2023 NotePROCEDURE: CHEST PA(AP) AND LATERAL CLINICAL HISTORY: Protracted cough and wheeze COMPARISON: 05/15/2016 chest x-ray FINDINGS: Cardiomediastinal silhouette appearance is unchanged, not enlarged. There is slightly increased tortuosity of the descending thoracic aorta. Thoracic spine degenerative changes are noted. Multilevel anterior syndesmophytes are seen at the midthoracic spine. The lungs are aerated throughout. No focal airspace disease or interstitial infiltrate. Mild apical pleural thickening is nonspecific, unchanged. No pneumothorax or pleural effusion. [facility] RADIOLOGYChief complaint+Reason for visit Narrative* Chief Complaint CONGESTED, COUGH, FE BRO SCREENING/OSTEO Reason for Visit COVID-19 [facility] Work Phone: Evaluation noteNo assessment information available [facility] Work Phone: Evaluation note* Diagnosis Hypogammaglobulinemia Hypogammaglobulinaemia, unspecified [facility] Diagnosis Onset Date [facility] Work Phone: Evaluation note* Diagnosis Hypogammaglobulinemia Hypogammaglobulinaemia, unspecified Chronic bronchitis, unspecified chronic bronchitis type [facility] Diagnosis Hypercholesterolemia Pure hypercholesterolemia Hypogammaglobulinemia Hypogammaglobulinaemia, unspecified [facility] Diagnosis Onset Date Resolution Status Abnormal EKG chronic Dyslipidemia chronic Hypertension chronic Palpitations chronic Chest pain resolved [facility] Work Phone: Reason for referral (narrative)No reason for referral [facility] Work Phone: Summary Purpose Family History No Family History Records Found Relationship Condition Age at Onset Recorded Date/T mike Not Specified Chronic obstructive pulmonary disease Un known father Hypertension Unknown Osteoarthritis Unknown brother Gout Unknown Multiple sclerosis Unknown Advance Directives No Advanced Directives Records Found Advance Directive Response Recorded Date/ Time Living Will Yes April 20 12:30pm Power of Sorting Grapple Operator Yes April 20, 2023 12:30pm Name of Medical Power of Sorting Grapple Operator Jay Rivera April 20, 2023 12:30pm Advance Directive Response Recorded Date/ Time Name of Medical Power of Sorting Grapple Operator Jay Rivera April 20, 2023 11:30am Living Will Yes April 20 11:30am Power of Sorting Grapple Operator Yes April 20, 2023 11:30am Advance Directive Response Recorded Date/ Time Living Will Yes April 20 12:30pm Power of Sorting Grapple Operator Yes April 20, 2023 12:30pm Advance Directive Response Recorded Date/ Time Living Will Yes April 20 11:30am Power of Sorting Grapple Operator Yes April 20, 2023 11:30am Name of Medical Power of Sorting Grapple Operator Jay Rivera April 20, 2023 11:30am Chief Complaint and Reason for Visit Chief Complaint LEFT BREAST MASS Chief Complaint LEFT BREAST MASS chest pain Chief Complaint chest pain CP; MITRAL VALVE PROLAPSE CP; MITRAL VALVE PROLAPSE CP (OCHOA) PALPITATIONS Reason for Visit Abnormal EKG Dyslipidemia Hypertension Palpitations Chest pain Chief Complaint CP; MITRAL VALVE PRO LAPSE CP; MITRAL VALVE PROLAPSE CP (OCHOA) PALP PALPITATIONS EORDER Reason for Visit Abnormal EKG Dyslipidemia Hypertension Palpitations Chest pain Chief Complaint LEFT BREAST MASS chest pain CP; MITRAL VALVE PROLAPSE Chief Complaint Admit Date 1 Y FU September 24, 2024 11: 08am Reason for Visit Admit Date Dyslipidemia September 24, 2024 11: 08am Hypertension September 24, 2024 11: 08am Palpitations September 24, 2024 11: 08am Chest pain September 24, 2024 11: 08am Chief Complaint Admit Date 1 Y FU September 24, 2024 11: 08am CHEST PAIN October 22, 2024 2:53pm CALCIIM SCORING October 22, 2024 2:54pm Amb Documentation October 26, 2024 8:26a m RIGHT KNEE PAIN October 30, 2024 4:37p m Additional Source Comments INFORMATION SOURCE (unrecogn ized section and content) DATE CREATED AUTHOR 12/10/2017 [facility] DATE CREATED AUTHOR AUTHOR'S ORGANIZ ATION 12/10/2017 [facility] DATE CREATED AUTHOR AUTHOR'S ORGANIZ ATION 06/01/2024 [facility] DATE CREATED AUTHOR AUTHOR'S ORGANIZ ATION 11/29/2024 [facility] Source Comments (unrecognize d section and content) In the event this informatio n is protected by the Federal Confidentiality of Alcohol and Drug Abuse Patient Records regulations: The Federal rules restrict any use of the information to criminally investigate or prosecute any alcohol or drug abuse patient.[facility] Goals (unrecognized section and content) Goals may be documented in a n alternate sectionGoals may be documented in an alternate sectionGoals may be documented in an alternate sectionGoals may be documented in an alternate sectionGoals may be documented in an alternate sectionGoals may be documented in an alternate sectionGoals may be documented in an alternate sectionGoals may be documented in an alternate sectionGoals may be documented in an alternate sectionGoals may be documented in an alternate section Care Teams (unrecognized sec tion and content) Sales Agent [employer] Relationship Specialty Start Date End Date Michel Ochoa MD [address] [facility] [address] [place], [place] [phone] PCP - General Family Medicine 11/28/18 Team Status: Active Member Role Status Dates Dr. Michel Ochoa MD Family Provider Active Dr. Michel Ochoa MD Primary Care Provider Active Team Status: Inactive Member Role Status Dates Dr. Michel Ochoa MD Primary Care Provider, Referring Provider Active Nicki Reyes PA, PA Attending Provider Active Team Status: Inactive Member Role Status Dates Dr. Michel Ochoa MD Primary Care Provider, Attending Provider Active Sales Agent [employer] Relationship Specialty Start Date End Date Michel Ochoa MD [address] [facility] [address] [place], [place] [phone] PCP - General Family Medicine 11/28/18 Team Status: Inactive Member Role Status Dates Dr. Michel Ocoha MD Primary Care Provi rodrigo, Attending Provider, Referring Provider Active Team Status: Inactive Member Role Status Dates Dr. Michel Ochoa MD Primary Care Provider Active Dr. Cassandra Fernandez DO Emergency Provider Active Sales Agent [employer] Insurance Relationship Specialty Start Date End Date [facility]a [facility] [address] [facility] [address] [place], [place] [phone] PCP - General Family Medicine 11/28/18 Team Status: Active Member Role Status Dates Dr. Michel Ochoa MD Primary Care Provi rodrigo, Referring Provider, Other Provider Active Dr. Joan Hannah MD Attending Provider Activ e Team Status: Active Member Role Status Dates Dr. Michel Ochoa MD Primary Care Provider Active Dr. Joan Hannah MD Attending Provider, Refe rring Provider Active Team Status: Inactive Member Role Status Dates Dr. Michel Ochoa MD Primary Care Provider, Referring Provider Active Dr. Jennifer Matos MD Attending Provider Active Team Status: Inactive Member Role Status Dates Dr. Michel Ochoa MD Primary Care Provider Active Dr. Cassandra Fernandez DO Attending Provider, Emergency Pro vider Active Team Status: Inactive Member Role Status Dates Dr. Michel Ochoa MD Primary Care Provider Active Dr. Jennifer Matos MD Attending Provider, Referring Pr ovider Active Team Status: Active Member Role Status Dates Dr. Michel Ochoa MD Primary Care Provider Active Dr. Jennifer Matos MD Attending Provider, Referring Pr ovider Active Team Status: Active Member Role Status Dates Dr. Michel Ochoa MD Primary Care Provider Active Team Status: Inactive Member Role Status Dates Dr. Michel Ochoa MD Primary Care Provider Active Start: September 24, 2024 End: September 24, 2024 Dr. Michel Ochoa MD Attending Provider Active Start: September 24, 2024 End: September 24, 2024 Dr. Michel Ochoa MD Referring Provider Active Start: September 24, 2024 End: September 24, 2024 Team Status: Inactive Member Role Status Dates Dr. Michel Ochoa MD Primary Care Provider Active Start: September 24, 2024 End: September 24, 2024 Dr. Michel Ochoa MD Referring Provider Active Start: September 24, 2024 End: September 24, 2024 Yamilka Mcrae CONSUMER LOAN SPECIALIST, CONSUMER LOAN SPECIALIST-C Attending Provider Active Start: September 24, 2024 End: September 24, 2024 Team Status: Active Member Role Status Dates Dr. Michel Ochoa MD Primary Care Provider Active Start: October 22, 2024 Yamilka Mcrae CONSUMER LOAN SPECIALIST, CONSUMER LOAN SPECIALIST-C Attending Provider Active Start: October 22, 2024 Yamilka Mcrae CONSUMER LOAN SPECIALIST, CONSUMER LOAN SPECIALIST-C Referring Provider Active Start: October 22, 2024 Team Status: Active Member Role Status Dates Dr. Michel Ochoa MD Primary Care Provider Active Start: October 22, 2024 Dr. Marvin Graham MD Attending Provider Active S tart: October 22, 2024 Yamilka Mcrae CONSUMER LOAN SPECIALIST, CONSUMER LOAN SPECIALIST-C Referring Provider Active Start: October 22, 2024 Team Status: Active Member Role Status Dates Dr. Michel Ochoa MD Primary Care Provider Active Start: October 26, 2024 Yamilka Mcrae NP, CONSUMER LOAN SPECIALIST-C Attending Provider Active Start: October 26, 2024 Team Status: Inactive Member Role Status Dates Dr. Michel Ochoa MD Primary Care Provider Active Start: October 30, 2024 End: October 30, 2024 Dr. Michel Ochoa MD Attending Provider Active Start: October 30, 2024 End: October 30, 2024 Dr. Michel Ochoa MD Referring Provider Active Start: October 30, 2024 End: October 30, 2024 FOR RECORDS PERTAINING TO PATIENTS WHO ARE OR HAVE BEEN ENROLLED IN A CHEMICAL DEPENDENCY/SUBSTANCEABUSE PROGRAM, SOME INFORMATION MAY BE OMITTED. This clinical summary was aggregated from multiple sources. Caution should be exercised in using it in the provision of clinical care. This summary normalizes information from multiple sources, and as a consequence, information in this document may materially change the coding, format and clinical context of patient data. In addition, data may be omitted in some cases. CLINICAL DECISIONS SHOULD BE BASED ON THE PRIMARY CLINICAL RECORDS. [employer] [facility]. provides no warranty or guarantee of the accuracy or completeness of information in this document.
[2024-12-03 04:07] LABS: Immunoglobulin A 21 mg/dL (87-352); Immunoglobulin G 1128 mg/dL (586-1602); Immunoglobulin M 69 mg/dL (26-217)
== END | disposition home or self-care (01) ==
LOC: MTLAB 10:02
PROVIDERS: PCP Family Medicine
DX: D80.1 Nonfamilial hypogammaglobulinemia (principal)
CPT/HCPCS: 36415; 82784

== ENCOUNTER → 2024-12-31 | Outpatient (CLI) | payer OTHER, SELFPAY ==
[2024-12-31 11:18] LABS: AST(SGOT) 24 U/L (<=31); Alanine Aminotransfer ALT/SGPT 21 U/L (<=34); Albumin, Serum 4.3 g/dL (3.4-4.8); Alkaline Phosphatase 87 U/L (35-104); Anion Gap 13 (5-15); BUN 21 mg/dL (4-19); BUN/Creat Ratio 23.3 RATIO (10-20); Calcium,Total 9.8 mg/dL (7.6-11.0); Carbon Dioxide 24.0 mmol/L (21.0-32.0); Chloride 104 mmol/L (98-108); Cholesterol 141 mg/dL (<=200); Globulin 2.9 g/dL (2.2-4.2); Glucose 113 mg/dL (70-99); Low Density Lipoprotein Calc. 58 mg/dL; Potassium 4.0 mmol/L (3.3-5.1); Triglycerides 234 mg/dL; Very Low Density Lipoprotein 47 mg/dL (5-40); cholesterol:hdl ratio screen 3.84
== END | disposition home or self-care (01) ==
LOC: MFPLAB 08:51
PROVIDERS: PCP Family Medicine; Referring Provider Family Medicine; Visit Provider Family Medicine
DX: E78.5 Hyperlipidemia, unspecified (principal); R73.9 Hyperglycemia, unspecified
CPT/HCPCS: 36415; 80053; 80061; 83036

== ENCOUNTER → 2025-02-24 | Outpatient (CLI) | payer OTHER, SELFPAY ==
--- NOTE | 2025-02-24 15:53 | RAD_ITS ---
PROCEDURE: CHEST PA AND LATERAL 02/24/2025 REASON FOR EXAM: COUGH,WEAKNESS TECHNIQUE: Procedure Code: RADCXR Modality: DX Procedure: CHEST PA AND LATERAL COMPARISON: Portable chest, 04/20/2023. FINDINGS: The lungs are clear. There is cardiomegaly. The mediastinum and pulmonary vascular pattern are normal. The upper abdominal bowel gas pattern is normal. There are findings of DISH throughout the thoracic spine. RAD/Chest PA and Lateral IMPRESSION: Cardiomegaly. No evidence of acute cardiopulmonary pathology. Reading Location: [place] [id number]
== END | disposition home or self-care (01) ==
LOC: MTRAD 15:53
PROVIDERS: PCP Family Medicine
DX: J44.89 Other specified chronic obstructive pulmonary disease (principal)
CPT/HCPCS: 71046

== ENCOUNTER → 2025-03-31 | Outpatient (CLI) | payer MEDICARE, OTHER, SELFPAY | END | disposition home or self-care (01) | LOC: CVS 08:50 | PROVIDERS: PCP Family Medicine; Referring Provider Family Medicine; Visit Provider Family Medicine | DX: I51.7 Cardiomegaly (principal) | CPT/HCPCS: 93306; Q9957; A4216; C8929 ==

== ENCOUNTER → 2025-04-09 | Outpatient (CLI) | payer MEDICARE, OTHER, SELFPAY ==
[2025-04-11 10:08] LABS: Immunoglobulin A 21 mg/dL (87-352); Immunoglobulin G 844 mg/dL (586-1602); Immunoglobulin M 91 mg/dL (26-217)
== END | disposition home or self-care (01) ==
LOC: MFPLAB 12:11
PROVIDERS: PCP Family Medicine
DX: J42 Unspecified chronic bronchitis (principal); D80.1 Nonfamilial hypogammaglobulinemia
CPT/HCPCS: 36415; 82784

== ENCOUNTER → 2025-04-16 | Outpatient (CLI) | payer MEDICARE, OTHER, SELFPAY ==
[2025-04-16 13:03] LABS: Anion Gap 13 (5-15); BUN 26 mg/dL (4-19); BUN/Creat Ratio 28.8 RATIO (10-20); Calcium,Total 10.1 mg/dL (7.6-11.0); Carbon Dioxide 23.1 mmol/L (21.0-32.0); Chloride 103 mmol/L (98-108); Glucose 113 mg/dL (70-99); Potassium 3.7 mmol/L (3.3-5.1)
== END | disposition home or self-care (01) ==
LOC: MFPLAB 10:03
PROVIDERS: PCP Family Medicine; Visit Provider Family Medicine
DX: Z00.00 Encounter for general adult medical examination without abnormal findings (principal)
CPT/HCPCS: 36415; 80048

== ENCOUNTER 2025-04-30 08:18 | Outpatient (CLI) | payer MEDICARE, OTHER, SELFPAY ==
[2025-04-30 08:40] VITALS: BP 125/57; PULSE 62; RESP 16; TEMP 35.6; O2SAT 98; BMI 32.8
[2025-04-30] MEDS: 0.9% Normal Saline (500mL Bag) 500 ML 999 ML IV (08:44)
[2025-04-30] MEDS: 0.9% NaCl Peripheral Flush Adult IV (09:10)
[2025-04-30] MEDS: Immune Globulin 20 gm 20 GM/200 ML VIAL IV (09:29)
[2025-04-30] MEDS: Immune Globulin 5 GM 5 GM/50 ML VIAL IV (12:09)
== END 2025-04-30 23:59 | disposition home or self-care (01) ==
LOC: MEDOUTP 08:18
PROVIDERS: PCP Family Medicine
DX: D83.9 Common variable immunodeficiency, unspecified (principal); J44.89 Other specified chronic obstructive pulmonary disease; Z86.19 Personal history of other infectious and parasitic diseases; J32.9 Chronic sinusitis, unspecified; D80.1 Nonfamilial hypogammaglobulinemia
CPT/HCPCS: 96361; 96365; 96366; A4216; J1568

== ENCOUNTER → 2025-05-27 | Outpatient (CLI) | payer MEDICARE, OTHER, SELFPAY ==
[2025-05-29 07:07] LABS: Immunoglobulin G 917 mg/dL (586-1602)
== END | disposition home or self-care (01) ==
LOC: MFPLAB 15:02
PROVIDERS: PCP Family Medicine; Visit Provider Family Medicine
DX: D80.1 Nonfamilial hypogammaglobulinemia (principal)
CPT/HCPCS: 36415; 82784

== ENCOUNTER 2025-05-28 07:49 | Outpatient (CLI) | payer MEDICARE, OTHER, SELFPAY ==
[2025-05-28 08:05] VITALS: BP 129/67; PULSE 56; RESP 16; TEMP 35.7; O2SAT 95; BMI 32.8
[2025-05-28] MEDS: 0.9% Normal Saline (500mL Bag) 500 ML 999 ML IV (08:17)
[2025-05-28] MEDS: 0.9% NaCl Peripheral Flush Adult IV (08:19)
[2025-05-28] MEDS: Immune Globulin 20 gm 20 GM/200 ML VIAL IV (09:13)
[2025-05-28] MEDS: Immune Globulin 5 GM 5 GM/50 ML VIAL IV (12:15)
== END 2025-05-28 23:59 | disposition home or self-care (01) ==
LOC: MEDOUTP 07:49
PROVIDERS: PCP Family Medicine
DX: D83.9 Common variable immunodeficiency, unspecified (principal)
CPT/HCPCS: 96361; 96365; 96366; A4216; J1568